=== PATIENT | female | born 1950 | race Caucasian/White ===

== ENCOUNTER → 2016-09-04 | Outpatient (REF) | payer MEDICARE | LOC: M SFHCADAM 07:57 | PROVIDERS: ATTEND Physician Assistant | DX: Z11.59 Encounter for screening for other viral diseases (principal); F34.1 Dysthymic disorder ==

== ENCOUNTER → 2016-10-31 | Outpatient (REF) | payer MEDICARE, MEDICAID ==
[2016-10-31 13:13] LABS: MEAN CORPUSCULAR HEMOGLOBIN 32.5 pg (27.0-33.0); MEAN CORPUSCULAR HGB CONC 33.4 g/dl (32.0-36.5); MEAN CORPUSCULAR VOLUME 97.2 fl (80.0-96.0); RED CELL DISTRIBUTION WIDTH 13.2 % (11.5-14.5); WHITE BLOOD COUNT 11.2 K/mm3 (4.0-10.0)
[2016-10-31 13:33] LABS: ALBUMIN 4.2 GM/DL (3.2-5.2); ALBUMIN/GLOBULIN RATIO 1.17 (1.00-1.93); ALKALINE PHOSPHATASE 55 U/L (45-117); ALT/SGPT 22 U/L (12-78); ANION GAP 9 MEQ/L (8-16); AST/SGOT 20 U/L (15-37); BILIRUBIN,TOTAL 1.2 MG/DL (0.2-1.0); BLOOD UREA NITROGEN 19 MG/DL (7-18); CALCIUM LEVEL 9.2 MG/DL (8.8-10.2); CARBON DIOXIDE LEVEL 27 MEQ/L (21-32); CHLORIDE LEVEL 103 MEQ/L (98-107); CHOLESTEROL LEVEL 195 MG/DL (<200); GLOMERULAR FILTRATION RATE > 60.0 (>45); GLUCOSE, FASTING 96 MG/DL (80-110); SODIUM LEVEL 139 MEQ/L (136-145); TOTAL PROTEIN 7.8 GM/DL (6.4-8.2); TRIGLYCERIDES LEVEL 108 MG/DL (<150)
== END ==
LOC: M SFHCADAM 08:41
PROVIDERS: ATTEND Physician Assistant
DX: E78.4 Other hyperlipidemia (principal); J44.9 Chronic obstructive pulmonary disease, unspecified; E55.9 Vitamin D deficiency, unspecified

== ENCOUNTER → 2016-11-13 | Outpatient (REF) | payer MEDICARE, MEDICAID ==
[~2016-11-13] MED LIST: CHAN1PAK9 PO; FLUO20CA19 PO; OTEZ1TAB3 PO; PROAAER10 INH; RALO1TAB PO; SYNT100T PO
[2016-11-13 19:44] LABS: FREE T4 1.2 NG/DL (0.76-1.46)
== END ==
LOC: M SFHCADAM 11:48
PROVIDERS: ATTEND Physician Assistant
DX: R63.4 Abnormal weight loss (principal); R19.7 Diarrhea, unspecified
CPT/HCPCS: 82784; 84439; 84443; 86256; G0463

== ENCOUNTER 2016-12-13 11:55 | Outpatient (CLI) | payer MEDICARE, MEDICAID ==
[~2016-12-13] VITALS: Ht 153.7 cm; Wt 41.3 kg
[2016-12-13] MEDS ORDERED: NS 1,000 ML IV SCH (12:00)
[2016-12-13] MEDS ORDERED: PROPOFOL 500 MG/50 ML VIAL As Ordered ONE (12:40)
[2016-12-13] MEDS ORDERED: LIDOCAINE 2% INJ 100 MG/5 ML SDV (FOR ANES.) As Ordered ONE (12:43)
--- NOTE | 2016-12-13 13:42 | ROOR ---
Patient Name: No Shah Procedure Date: 12/13/2016 1:27 PM Date of : 1950 Age: 66 Room: [facility] Gender: Female Note Status: Finalized Procedure: Upper GI endoscopy Indications: Generalized abdominal pain, Suspected celiac disease Providers: Dayne Payne Jr, MD Referring MD: MAGDA Servin Requesting Provider: Medicines: Propofol per Anesthesia Complications: No immediate complications. Procedure: Pre-Anesthesia Assessment: - Prior to the procedure, a History and Physical was performed, and patient medications and allergies were reviewed. The patient is competent. The risks and benefits of the procedure and the sedation options and risks were discussed with the patient. All questions were answered and informed consent was obtained. Patient identification and proposed procedure were verified by the physician and the nurse in the pre-procedure area and in the procedure room. Mental Status Examination: alert and oriented. Airway Examination: normal oropharyngeal airway and neck mobility. Respiratory Examination: clear to auscultation. CV Examination: normal. ASA Grade Assessment: II - A patient with mild systemic disease. After reviewing the risks and benefits, the patient was deemed in satisfactory condition to undergo the procedure. The anesthesia plan was to use moderate sedation / analgesia (conscious sedation). Immediately prior to administration of medications, the patient was re-assessed for adequacy to receive sedatives. The heart rate, respiratory rate, oxygen saturations, blood pressure, adequacy of pulmonary ventilation, and response to care were monitored throughout the procedure. The physical status of the patient was re-assessed after the procedure. The Endoscope was introduced through the mouth, and advanced to the second part of duodenum. The upper GI endoscopy was accomplished without difficulty. The patient tolerated the procedure well. Findings: The upper third of the esophagus, middle third of the esophagus and lower third of the esophagus were normal. The cardia, gastric fundus, gastric body, greater curvature of the stomach, lesser curvature of the stomach, gastric antrum, prepyloric region of the stomach and pylorus were normal. The duodenal bulb, first portion of the duodenum and second portion of the duodenum were normal. Biopsies for histology were taken with a cold forceps for evaluation of celiac disease. Impression: - Normal upper third of esophagus, middle third of esophagus and lower third of esophagus. - Normal cardia, gastric fundus, gastric body, greater curvature of the stomach, lesser curvature of the stomach, antrum, prepyloric region of the stomach and pylorus. - Normal duodenal bulb, first portion of the duodenum and second portion of the duodenum. Biopsied. Recommendation: - Discharge patient to home (ambulatory). - Return to my office in 3 weeks. Dayne Payne MD Dayne Payne Jr, MD 12/13/2016 1:41:44 PM This report has been signed electronically. Number of Addenda: 0 Note Initiated On: 12/13/2016 1:27 PM Estimated Blood Loss: Estimated blood loss: none.
--- NOTE | 2016-12-13 14:09 | ROOR ---
Patient Name: No Shah Procedure Date: 12/13/2016 1:28 PM Date of : 1950 Age: 66 Room: [facility] Gender: Female Note Status: Finalized Procedure: Colonoscopy Indications: Chronic diarrhea Providers: Dayne Payne Jr, MD Referring MD: MAGDA Servin Requesting Provider: Medicines: Propofol per Anesthesia Complications: No immediate complications. Procedure: Pre-Anesthesia Assessment: - Prior to the procedure, a History and Physical was performed, and patient medications and allergies were reviewed. The patient is competent. The risks and benefits of the procedure and the sedation options and risks were discussed with the patient. All questions were answered and informed consent was obtained. Patient identification and proposed procedure were verified by the physician and the nurse in the pre-procedure area and in the procedure room. Mental Status Examination: alert and oriented. Airway Examination: normal oropharyngeal airway and neck mobility. Respiratory Examination: clear to auscultation. CV Examination: normal. ASA Grade Assessment: II - A patient with mild systemic disease. After reviewing the risks and benefits, the patient was deemed in satisfactory condition to undergo the procedure. The anesthesia plan was to use moderate sedation / analgesia (conscious sedation). Immediately prior to administration of medications, the patient was re-assessed for adequacy to receive sedatives. The heart rate, respiratory rate, oxygen saturations, blood pressure, adequacy of pulmonary ventilation, and response to care were monitored throughout the procedure. The physical status of the patient was re-assessed after the procedure. The Colonoscope was introduced through the anus and advanced to the cecum, identified by appendiceal orifice and ileocecal valve. The colonoscopy was performed without difficulty. The patient tolerated the procedure well. The quality of the bowel preparation was excellent. Findings: The perianal and digital rectal examinations were normal. Pertinent negatives include no palpable rectal lesions and no anal lesion or abnormality was detected. The sigmoid colon, descending colon, transverse colon, ascending colon, cecum, appendiceal orifice, ileocecal valve and ileum appeared normal. Biopsies for histology were taken with a cold forceps from the ascending colon, transverse colon, descending colon and sigmoid colon for evaluation of microscopic colitis. The distal ileum appeared normal. Biopsies were taken with a cold forceps for histology. A diminutive polyp was found in the recto-sigmoid colon. The polyp was hyperplastic. Impression: - The sigmoid colon, descending colon, transverse colon, ascending colon, cecum, appendiceal orifice, ileocecal valve and terminal ileum are normal. Biopsied. - The examined portion of the ileum was normal. Biopsied. - One diminutive polyp at the recto-sigmoid colon. Recommendation: - Discharge patient to home (ambulatory). - Repeat colonoscopy in 10 years for screening purposes. Dayne Payne MD Dayne Payne Jr, MD 12/13/2016 2:08:28 PM This report has been signed electronically. Number of Addenda: 0 Note Initiated On: 12/13/2016 1:28 PM Estimated Blood Loss: Estimated blood loss: none.
[2016-12-13 14:35] VITALS: BP 115/64
== END 2016-12-13 15:10 | disposition home or self-care (01) ==
LOC: M OPP 11:55
PROVIDERS: ATTEND Surgery
DX: K63.5 Polyp of colon (principal); R10.84 Generalized abdominal pain; R63.4 Abnormal weight loss; J44.9 Chronic obstructive pulmonary disease, unspecified; E03.9 Hypothyroidism, unspecified; Z87.891 Personal history of nicotine dependence; Z79.899 Other long term (current) drug therapy; Z88.0 Allergy status to penicillin; Z88.8 Allergy status to other drugs, medicaments and biological substances; Z91.018 Allergy to other foods

== ENCOUNTER → 2017-02-06 | Outpatient (CLI) | payer MEDICARE, MEDICAID ==
--- NOTE | 2017-02-06 13:49 | REP ---
Thyroid ultrasound: The patient had a thyroidectomy and 2011 for thyroid carcinoma. There is residual soft tissue in the thyroid bed in the right lobe area measuring 125 x 0.6 x 0.5 cm and in the left lobe and measuring 1.8 x 1.2 x 0 point 6 cm and in the isthmus measuring 2 mm. This could represent represent residual thyroid tissue or postsurgical scarring. No nodules or masses are identified. A normal size lymph node is identified anterior to the right common carotid artery measuring 0.3 cm short axis by 0. 7 cm x 1.0 cm. Impression: Small volume of residual thyroid tissue versus postsurgical scarring. Normal size lymph node on the right. Signed by Efra Higginbotham MD 02/06/2017 01:40 P
== END ==
LOC: M RAD 12:39
PROVIDERS: ATTEND Nurse Practitioner Family
DX: C73 Malignant neoplasm of thyroid gland (principal)

== ENCOUNTER 2017-02-09 14:37 | Emergency (ER) | payer MEDICARE, MEDICAID ==
[~2017-02-09] VITALS: Ht 152.4 cm; Wt 43.9 kg
--- NOTE | 2017-02-09 17:50 | REPUSA ---
CLINICAL HISTORY: Trauma. TECHNIQUE: Multiple axial CT images were obtained through the brain without IV contrast material. COMMENTS: There is normal configuration of sella turcica. There are no intra or extra-axial collections. There is no mass effect or midline shift. There is no evidence of hematoma formation. No hydrocephalus is p resent. The ventricles are symmetrical. No abnormal calcifications are present. There is diffuse age-appropriate cerebellar and cerebral atrophy with proportionally dilated ventricl es and cortical sulci. There are bilateral periventricular and subcortical white matter hypolucencies compatible with mild c hronic microvascular disease. Otherwise, no significant focal abnormalities are seen either in the posterior fossa or supratentoria l compartment. IMPRESSION: 1. Age-appropriate cerebellar and cerebral atrophy. 2. Mild chronic microvascular disease. 3. No evidence of acute intracranial pathology. 4. Please see CT of the facial bones report dictated separately. Thank you for your kind referral of this patient.
[2017-02-09] MEDS ORDERED: NS 1,000 ML IV ONE (19:45)
[2017-02-09 19:54] LABS: BASO # 0.1 10^3/uL (0.0-0.2); BASO % 0.9 % (0.0-1.0); EOS # 0.1 10^3/uL (0.0-0.50); EOS % 1.2 % (0.0-3.0); IMMATURE GRANULOCYTE % 0.3 % (0-0); LYMPH % 29.4 % (24.0-44.0); MEAN CORPUSCULAR HEMOGLOBIN 32.8 pg (27.0-33.0); MEAN CORPUSCULAR HGB CONC 33.1 g/dl (32.0-36.5); MEAN CORPUSCULAR VOLUME 99.4 fl (80.0-96.0); MONO # 0.6 10^3/uL (0.0-0.8); MONO % 6.3 % (0.0-5.0); NEUTROPHILS # 6.3 10^3/uL (1.8-7.7); NEUTROPHILS % 61.9 % (36.0-66.0); PLATELET COUNT, AUTOMATED 274 10^3/uL (150-450); RED CELL DISTRIBUTION WIDTH 13.3 % (11.5-14.5); WHITE BLOOD COUNT 10.2 10^3/uL (4.0-10.0)
[2017-02-09 20:44] LABS: ANION GAP 11 MEQ/L (8-16); BLOOD UREA NITROGEN 22 MG/DL (7-18); CARBON DIOXIDE LEVEL 25 MEQ/L (21-32); CHLORIDE LEVEL 99 MEQ/L (98-107); CREATININE FOR GFR 0.68 MG/DL (0.55-1.02); GLOMERULAR FILTRATION RATE > 60.0 (>45); GLUCOSE, FASTING 81 MG/DL (80-110); POTASSIUM SERUM 3.3 MEQ/L (3.5-5.1); SODIUM LEVEL 135 MEQ/L (136-145)
[2017-02-09 21:29] VITALS: BP 148/78
--- NOTE | 2017-02-11 12:25 | REPUSA ---
HISTORY: Trauma. TECHNIQUE: Multiple thin section helically-acquired axially-displayed and helically acquired coronall y displayed computed tomographic images of the face are obtained from the mandible through the fronta l sinuses, with images obtained at soft tissue and bone window. 2D reformatted images were performed. FINDINGS: Diffuse right periorbital swelling and periorbital subcutaneous emphysema is seen. Note is made of a comminuted fracture involving right orbital floor and medial orbital wall. Herniation of intraorbital contents inferiorly but no evidence of entrapment of inferior rectus muscl e. Right intraorbital air is noted. Air-fluid levels present in the right maxillary sinus compatibl e with hemorrhage. Superimposed right maxillary sinusitis is seen. Normal bony mineralization. No additional fractures. Normal left orbit. Normal oral and nasal cavities. Normal infratemporal fossa and deep parapharyngeal spaces with normal muscles of mastication. Normal parotid and submandibular glands. IMPRESSION: Diffuse right periorbital swelling and periorbital subcutaneous emphysema Comminuted fracture involving right orbital floor and medial orbital wall. Herniation of intraorbital contents inferiorly, no evidence of entrapment of inferior rectus muscle. Air-fluid levels present in the right maxillary sinus compatible with hemorrhage. Superimposed right maxillary sinusitis is seen. Thank you for your kind referral of this patient
== END 2017-02-09 21:32 | disposition short-term general hospital (02) ==
LOC: M ED 14:37
DX: S05.11XA Contusion of eyeball and orbital tissues, right eye, initial encounter (principal); W01.198A Fall on same level from slipping, tripping and stumbling with subsequent striking against other object, initial encounter; Y92.012 Bathroom of single-family (private) house as the place of occurrence of the external cause; Y93.89 Activity, other specified; Y99.8 Other external cause status; Z79.899 Other long term (current) drug therapy; Z91.018 Allergy to other foods; Z88.0 Allergy status to penicillin; Z88.8 Allergy status to other drugs, medicaments and biological substances; Z87.891 Personal history of nicotine dependence

== ENCOUNTER → 2017-03-19 | Outpatient (REF) | payer MEDICARE, MEDICAID ==
[2017-03-19 19:49] LABS: ALBUMIN 3.2 GM/DL (3.2-5.2); ALBUMIN/GLOBULIN RATIO 0.94 (1.00-1.93); ALKALINE PHOSPHATASE 57 U/L (45-117); ALT/SGPT 18 U/L (12-78); ANION GAP 8 MEQ/L (8-16); AST/SGOT 10 U/L (7-37); BILIRUBIN,TOTAL 0.3 MG/DL (0.2-1.0); BLOOD UREA NITROGEN 18 MG/DL (7-18); CALCIUM LEVEL 8.8 MG/DL (8.8-10.2); CARBON DIOXIDE LEVEL 28 MEQ/L (21-32); CHLORIDE LEVEL 105 MEQ/L (98-107); CREATININE FOR GFR 0.81 MG/DL (0.55-1.02); GLOMERULAR FILTRATION RATE > 60.0 (>45); GLUCOSE, FASTING 80 MG/DL (80-110); POTASSIUM SERUM 3.7 MEQ/L (3.5-5.1); SODIUM LEVEL 141 MEQ/L (136-145); TOTAL PROTEIN 6.6 GM/DL (6.4-8.2)
[2017-03-19 19:58] LABS: MEAN CORPUSCULAR HEMOGLOBIN 32.5 pg (27.0-33.0); MEAN CORPUSCULAR VOLUME 101.5 fl (80.0-96.0); PLATELET COUNT, AUTOMATED 319 10^3/uL (150-450); RED CELL DISTRIBUTION WIDTH 11.7 % (11.5-14.5); WHITE BLOOD COUNT 15.2 10^3/uL (4.0-10.0)
== END ==
LOC: M SFHCADAM 13:47
PROVIDERS: ATTEND Physician Assistant
DX: R19.7 Diarrhea, unspecified (principal); K92.1 Melena; Z79.899 Other long term (current) drug therapy

== ENCOUNTER → 2017-04-18 | Outpatient (REF) | payer MEDICARE, MEDICAID ==
[2017-04-18 13:18] LABS: MEAN CORPUSCULAR HEMOGLOBIN 31.6 pg (27.0-33.0); MEAN CORPUSCULAR HGB CONC 31.8 g/dl (32.0-36.5); MEAN CORPUSCULAR VOLUME 99.1 fl (80.0-96.0); PLATELET COUNT, AUTOMATED 407 10^3/uL (150-450); RED CELL DISTRIBUTION WIDTH 11.7 % (11.5-14.5); WHITE BLOOD COUNT 16.4 10^3/uL (4.0-10.0)
[2017-04-18 13:45] LABS: ALBUMIN 3.4 GM/DL (3.2-5.2); ALBUMIN/GLOBULIN RATIO 0.83 (1.00-1.93); BILIRUBIN,TOTAL 0.5 MG/DL (0.2-1.0); CREATININE FOR GFR 0.98 MG/DL (0.55-1.02); FREE T4 1.19 NG/DL (0.76-1.46); GLOMERULAR FILTRATION RATE 59.9 (>45); POTASSIUM SERUM 4.2 MEQ/L (3.5-5.1); TOTAL PROTEIN 7.5 GM/DL (6.4-8.2)
== END ==
LOC: M SFHCADAM 10:58
PROVIDERS: ATTEND Physician Assistant
DX: F17.200 Nicotine dependence, unspecified, uncomplicated (principal); E03.9 Hypothyroidism, unspecified; E78.4 Other hyperlipidemia; Z85.850 Personal history of malignant neoplasm of thyroid

== ENCOUNTER → 2017-04-19 | Outpatient (REF) | payer MEDICARE, MEDICAID | LOC: M SFHCADAM 19:13 | PROVIDERS: ATTEND Physician Assistant | DX: R19.7 Diarrhea, unspecified (principal); Z79.899 Other long term (current) drug therapy ==

== ENCOUNTER → 2017-06-01 | Outpatient (REF) | payer MEDICARE, MEDICAID | LOC: M LAB REF 19:00 | DX: R19.37 Generalized abdominal rigidity (principal) | CPT/HCPCS: 87507 ==

== ENCOUNTER → 2017-10-24 | Outpatient (REF) | payer MEDICARE, MEDICAID ==
[2017-10-24 13:09] LABS: ANION GAP 6 MEQ/L (8-16); BLOOD UREA NITROGEN 23 MG/DL (7-18); CALCIUM LEVEL 8.5 MG/DL (8.8-10.2); CARBON DIOXIDE LEVEL 31 MEQ/L (21-32); CHLORIDE LEVEL 107 MEQ/L (98-107); CREATININE FOR GFR 0.69 MG/DL (0.55-1.30); GLOMERULAR FILTRATION RATE > 60.0 (>45); GLUCOSE, FASTING 94 MG/DL (70-100); POTASSIUM SERUM 4.3 MEQ/L (3.5-5.1); SODIUM LEVEL 144 MEQ/L (136-145)
== END ==
LOC: M SFHCADAM 11:19
DX: J44.9 Chronic obstructive pulmonary disease, unspecified (principal); E78.4 Other hyperlipidemia
CPT/HCPCS: 80048

== ENCOUNTER → 2018-01-31 | Outpatient (REF) | payer MEDICARE, MEDICAID ==
[2018-01-31 12:31] LABS: HEMATOCRIT 42.9 % (36.0-47.0); MEAN CORPUSCULAR HEMOGLOBIN 32.6 pg (27.0-33.0); MEAN CORPUSCULAR HGB CONC 32.6 g/dl (32.0-36.5); MEAN CORPUSCULAR VOLUME 99.8 fl (80.0-96.0); PLATELET COUNT, AUTOMATED 293 10^3/uL (150-450); RED CELL DISTRIBUTION WIDTH 12.7 % (11.5-14.5); WHITE BLOOD COUNT 5.6 10^3/uL (4.0-10.0)
[2018-01-31 13:37] LABS: ALBUMIN 3.8 GM/DL (3.2-5.2); ALBUMIN/GLOBULIN RATIO 1.19 (1.00-1.93); ALKALINE PHOSPHATASE 39 U/L (45-117); ALT/SGPT 20 U/L (12-78); ANION GAP 10 MEQ/L (8-16); AST/SGOT 14 U/L (7-37); BLOOD UREA NITROGEN 23 MG/DL (7-18); CALCIUM LEVEL 8.8 MG/DL (8.8-10.2); CARBON DIOXIDE LEVEL 28 MEQ/L (21-32); CHLORIDE LEVEL 105 MEQ/L (98-107); CHOLESTEROL LEVEL 188 MG/DL (<200); CHOLESTEROL RISK RATIO 2.112 (<5); CREATININE FOR GFR 0.64 MG/DL (0.55-1.30); FREE T4 1.42 NG/DL (0.76-1.46); GLOMERULAR FILTRATION RATE > 60.0 (>45); GLUCOSE, FASTING 74 MG/DL (70-100); HDL CHOLESTEROL 89 MG/DL (>40); LDL CHOLESTEROL 40 MG/DL (<100); NON-HDL-C 99 MG/DL; POTASSIUM SERUM 4.6 MEQ/L (3.5-5.1); SODIUM LEVEL 143 MEQ/L (136-145); TRIGLYCERIDES LEVEL 297 MG/DL (<150)
== END ==
LOC: M SFHCADAM 08:05
DX: E03.9 Hypothyroidism, unspecified (principal); J44.9 Chronic obstructive pulmonary disease, unspecified; E78.4 Other hyperlipidemia
CPT/HCPCS: 84443

== ENCOUNTER → 2018-02-18 | Outpatient (CLI) | payer MEDICARE, MEDICAID | LOC: M RAD 13:41 | DX: C73 Malignant neoplasm of thyroid gland (principal); Z98.890 Other specified postprocedural states | CPT/HCPCS: 76536 ==

== ENCOUNTER → 2018-12-23 | Outpatient (REF) | payer MEDICARE, MEDICAID ==
[~2018-12-23] MED LIST changes: +CHAN1PAK13 PO; -CHAN1PAK9 PO; +PROBCAP14 PO; +SING10TA32 PO; +VITA100066 PO
[2018-12-23 19:47] LABS: BASO # 0.1 10^3/uL (0.0-0.2); BASO % 0.7 % (0.0-1.0); EOS # 0.4 10^3/uL (0.0-0.50); EOS % 4.7 % (0.0-3.0); HEMOGLOBIN 14.8 g/dl (12.0-15.5); LYMPH # 2.3 10^3/uL (1.5-4.5); LYMPH % 31.2 % (24.0-44.0); MEAN CORPUSCULAR HEMOGLOBIN 30.5 pg (27.0-33.0); MEAN CORPUSCULAR HGB CONC 31.5 g/dl (32.0-36.5); MEAN CORPUSCULAR VOLUME 96.9 fl (80.0-96.0); MONO # 0.8 10^3/uL (0.0-0.8); MONO % 10.2 % (0.0-5.0); NEUTROPHILS # 3.9 10^3/uL (1.8-7.7); NEUTROPHILS % 52.8 % (36.0-66.0); PLATELET COUNT, AUTOMATED 258 10^3/uL (150-450); RED BLOOD COUNT 4.85 10^6/uL (4.00-5.40); WHITE BLOOD COUNT 7.4 10^3/uL (4.0-10.0)
[2018-12-23 19:59] LABS: ALBUMIN 3.8 GM/DL (3.2-5.2); ALT/SGPT 20 U/L (12-78); BILIRUBIN,TOTAL 0.5 MG/DL (0.2-1.0); BLOOD UREA NITROGEN 20 MG/DL (7-18); CALCIUM LEVEL 8.8 MG/DL (8.8-10.2); CARBON DIOXIDE LEVEL 31 MEQ/L (21-32); CHLORIDE LEVEL 106 MEQ/L (98-107); CHOLESTEROL LEVEL 201 MG/DL (<200); CHOLESTEROL RISK RATIO 2.284 (<5); FREE T4 1.28 NG/DL (0.76-1.46); GLOMERULAR FILTRATION RATE > 60.0 (>39); GLUCOSE, FASTING 79 MG/DL (70-100); HDL CHOLESTEROL 88 MG/DL (>40); LDL CHOLESTEROL 77 MG/DL (<100); NON-HDL-C 113 MG/DL; POTASSIUM SERUM 4.8 MEQ/L (3.5-5.1); SODIUM LEVEL 142 MEQ/L (136-145); THYROID STIMULATING HORMONE 0.384 uIU/ML (0.358-3.740); TOTAL PROTEIN 7.4 GM/DL (6.4-8.2); TRIGLYCERIDES LEVEL 178 MG/DL (<150)
== END ==
LOC: M SFHCADAM 16:06
PROVIDERS: ATTEND Physician Assistant
DX: J44.9 Chronic obstructive pulmonary disease, unspecified (principal); F17.211 Nicotine dependence, cigarettes, in remission; E03.9 Hypothyroidism, unspecified; R06.09 Other forms of dyspnea
CPT/HCPCS: 80053; 80061; 84439; 84443; 85025; 94010; G0463

== ENCOUNTER → 2019-01-13 | Outpatient (CLI) | payer MEDICARE, MEDICAID ==
--- NOTE | 2019-01-13 13:40 | REP ---
Low-dose lung cancer screening CT Indication: Nicotine dependence. Comparison: Low-dose lung screening CT of 05/02/2016. Technique: Axial low-dose CT of the chest was performed and reviewed in lung reformatted images only. No intravenous contrast was administered. Findings: The upper airway is patent. There are diffuse central lobular and paraseptal emphysematous changes. There is pleural parenchymal scarring within the lung apices. There is a 1 mm nodule within the left upper lobe anteriorly on image 39. There is atelectasis within the lingula. There is no pleural effusion. Heart size is normal. No pericardial effusion. Note is made of ACDF hardware. Impression: Lung-RADS 2S for emphysema. Continue annual screening with low-dose CT in 12 months. Electronically Signed by Marilee Avendaño MD 01/13/2019 01:31 P
== END ==
LOC: M RAD 12:36
PROVIDERS: ATTEND Physician Assistant
DX: Z12.2 Encounter for screening for malignant neoplasm of respiratory organs (principal); F17.211 Nicotine dependence, cigarettes, in remission; R91.1 Solitary pulmonary nodule; J43.9 Emphysema, unspecified; J98.11 Atelectasis

== ENCOUNTER → 2019-03-12 | Outpatient (CLI) | payer MEDICAID, MEDICARE ==
[~2019-03-12] MED LIST changes: +SPIR12.9 INH; +SYMB16INH INH
--- NOTE | 2019-03-12 17:09 | REP ---
Thyroid ultrasound: The patient has had a total thyroidectomy. The studies performed evaluate residual thyroid tissue. Comparison is 02/18/2018. The residual thyroid tissue on the right measures 1.3 x 0.6 x 0.5 cm. Residual thyroid tissue on the left measures 1.6 x 0.7 x 0.5 cm. This is not significantly changed from the comparison study. Electronically Signed by Efra Higginbotham MD 03/12/2019 02:34 P
== END ==
LOC: M RAD 13:52
PROVIDERS: ATTEND Internal Medicine Medical Oncology
DX: Z90.89 Acquired absence of other organs (principal); C73 Malignant neoplasm of thyroid gland

== ENCOUNTER → 2019-08-28 | Outpatient (REF) | payer MEDICARE ==
[~2019-08-28] MED LIST changes: -FLUO20CA19 PO; +FLUO20CA22 PO
[2019-08-28 18:11] LABS: BASO # 0.1 10^3/uL (0.0-0.2); BASO % 0.7 % (0.0-1.0); EOS # 0.2 10^3/uL (0.0-0.5); EOS % 1.5 % (0.0-3.0); HEMATOCRIT 44.3 % (36.0-47.0); HEMOGLOBIN 14.1 g/dl (12.0-15.5); LYMPH # 1.9 10^3/uL (1.5-5.0); LYMPH % 16.8 % (24.0-44.0); MEAN CORPUSCULAR HGB CONC 31.8 g/dl (32.0-36.5); MEAN CORPUSCULAR VOLUME 100.5 fl (80.0-96.0); MONO # 0.7 10^3/uL (0.0-0.8); NEUTROPHILS # 8.3 10^3/uL (1.5-8.5); NEUTROPHILS % 74.6 % (36.0-66.0); PLATELET COUNT, AUTOMATED 345 10^3/uL (150-450); RED BLOOD COUNT 4.41 10^6/uL (4.00-5.40); WHITE BLOOD COUNT 11.2 10^3/uL (4.0-10.0)
[2019-08-28 18:38] LABS: ALBUMIN 3.6 GM/DL (3.2-5.2); ALT/SGPT 26 U/L (12-78); BILIRUBIN,TOTAL 0.4 MG/DL (0.2-1.0); BLOOD UREA NITROGEN 21 MG/DL (7-18); CARBON DIOXIDE LEVEL 30 MEQ/L (21-32); CHLORIDE LEVEL 106 MEQ/L (98-107); FREE T4 1.55 NG/DL (0.76-1.46); GLOMERULAR FILTRATION RATE > 60.0 (>39); GLUCOSE, FASTING 90 MG/DL (70-100); POTASSIUM SERUM 4.7 MEQ/L (3.5-5.1); SODIUM LEVEL 142 MEQ/L (136-145); THYROID STIMULATING HORMONE 0.136 uIU/ML (0.358-3.740); TOTAL PROTEIN 7.3 GM/DL (6.4-8.2)
== END ==
LOC: M SFHCADAM 14:14
PROVIDERS: ATTEND Physician Assistant
DX: J44.9 Chronic obstructive pulmonary disease, unspecified (principal); R09.02 Hypoxemia; R06.00 Dyspnea, unspecified

== ENCOUNTER → 2019-08-28 | Outpatient (CLI) | payer MEDICARE ==
--- NOTE | 2019-08-29 08:25 | REP ---
REASON FOR EXAM: Severe COPD. COMPARISON: EXAM: None. The lung franco are hyperexpanded. There is bullous emphysematous change seen in the upper lobe bilaterally. Fibrotic changes are seen in the lung bases. There are no patchy opacities or pleural effusions. The heart is not enlarged. The osseous structures are within normal limits. IMPRESSION: Findings consistent with COPD as described above. Electronically Signed by Bart Santana DO 08/31/2019 07:52 A
== END ==
LOC: M ADAMS 14:31
PROVIDERS: ATTEND Physician Assistant
DX: J44.9 Chronic obstructive pulmonary disease, unspecified (principal); R09.02 Hypoxemia; R06.00 Dyspnea, unspecified

== ENCOUNTER → 2019-11-05 | Outpatient (REF) | payer MEDICARE ==
[2019-11-05 17:35] LABS: FREE T4 1.17 NG/DL (0.76-1.46); THYROID STIMULATING HORMONE 3.82 uIU/ML (0.358-3.740)
== END ==
LOC: M SFHCADAM 13:02
PROVIDERS: ATTEND Physician Assistant
DX: E03.9 Hypothyroidism, unspecified (principal)

== ENCOUNTER → 2020-02-17 | Outpatient (CLI) | payer BC, MEDICAID, MEDICARE ==
[~2020-02-17] MED LIST changes: +LEVO100T5 PO; +LEVO75TA4 PO; +TREL1AER PO
--- NOTE | 2020-02-22 09:24 | REP ---
THYROID ULTRASOUND CLINICAL: History of thyroid cancer and prior thyroidectomy. TECHNIQUE: Real-time spann scale and color evaluation using linear high frequency transducer. COMPARISON: 03/12/2019. FINDINGS: Right thyroid lobe measures 2.0 x 0.6 x 0.3 cm and includes small 5 x 2 x 2 mm nonspecific cyst, which represents a new finding as compared to prior examination. Left lobe measures 2.3 x 0.5 x 0.5 cm and appears essentially normal/stable. Isthmus measures 1.4 mm in width. IMPRESSION: Small new nonspecific cyst in the right thyroid tissue. MTDD
== END ==
LOC: M RAD 14:10
PROVIDERS: ATTEND Internal Medicine Medical Oncology
DX: Z85.850 Personal history of malignant neoplasm of thyroid (principal)

== ENCOUNTER → 2020-03-18 | Outpatient (REF) | payer MEDICARE, MEDICAID | LOC: M LAB REF 17:11 | PROVIDERS: ATTEND Physician Assistant | DX: L57.0 Actinic keratosis (principal); L57.8 Other skin changes due to chronic exposure to nonionizing radiation | CPT/HCPCS: 11102; 88305; G0463 ==

== ENCOUNTER → 2020-04-27 | Outpatient (CLI) | payer MEDICARE ==
[~2020-04-27] MED LIST changes: +LEVO88TA3 PO; +VITA1CAP25 PO
--- NOTE | 2020-04-27 11:45 | REP ---
INDICATION: NICOTINE DEPEND COMPARISON: None. TECHNIQUE: Axial noncontrast images from the thoracic inlet to the upper abdomen using low-dose lung screening technique (LDCT). FINDINGS: There is a new 2 cm spiculated mass at the right lung base abutting the diaphragm (series 201; image 78). Advanced COPD/emphysematous changes with scattered scarring again noted and unchanged. No effusion. No pneumothorax. Tracheobronchial tree is patent and demonstrates associated bronchiectasis. IMPRESSION: Lung-RADS category 4X with a 2 cm spiculated mass at the right base suspicious for malignancy. Biopsy and/or PET-CT are recommended. <Electronically signed by Greg Carrillo > 04/27/20 [id number]
== END ==
LOC: M RAD 11:15
PROVIDERS: ATTEND Physician Assistant
DX: Z12.2 Encounter for screening for malignant neoplasm of respiratory organs (principal); Z87.891 Personal history of nicotine dependence
CPT/HCPCS: 17000; 17003; G0297

== ENCOUNTER → 2020-05-03 | Outpatient (REF) | payer MEDICARE, MEDICAID ==
[2020-05-03 13:39] LABS: FREE T4 1.18 NG/DL (0.76-1.46); THYROGLOBULIN ANTIBODY < 15.0 U/ML (<60.0); THYROID STIMULATING HORMONE 0.609 uIU/ML (0.358-3.740)
[2020-05-04 11:08] LABS: THRYOGLOBULIN ANTIBODIES (ATA) < 1.0 IU/mL (0.0-0.9); THYROGLOBULIN QUANTITATIVE < 0.1 ng/mL (1.5-38.5)
== END ==
LOC: M LABDRWAD 12:02
PROVIDERS: ATTEND Internal Medicine Endocrinology, Diabetes & Metabolism
DX: E89.0 Postprocedural hypothyroidism (principal); C73 Malignant neoplasm of thyroid gland

== ENCOUNTER → 2020-05-31 | Outpatient (CLI) | payer MEDICAID, MEDICARE ==
--- NOTE | 2020-06-01 16:47 | REP ---
INDICATION: DIAGNOSING LUNG NODLE R91.1. COMPARISON: Comparison CT study of the chest 27 April 2020 showed a spiculated nodule in the right lung base.. TECHNIQUE: Fifty-four minutes following the intravenous injection of a 8.96 mCi dose of F-18 FDG, three-dimensional PET scintigraphy is acquired from the skull base to the proximal thighs. Triplanar noncontrast CT scanning is acquired through the same anatomic range for attenuation correction, and image registration with scan parameters optimized to minimize radiation exposure to the patient. PET scintigraphy and CT datasets were fused and displayed on a workstation with multiplanar and projection display capability. FINDINGS: The head and neck soft tissues are unremarkable. The spiculated 2 cm nodule seen on the dome of the diaphragm in the right lower lobe is seen on PET-CT to be mildly hypermetabolic. Maximum standard uptake value is 3.94. There is no other abnormal hypermetabolic uptake in the thorax. In the abdomen and pelvis, normal hepatic, splenic, and gastrointestinal FDG accumulation is seen. No abnormal uptake is seen in the abdomen or pelvis. IMPRESSION: Mild hypermetabolic uptake is seen in the spiculated nodule noted in the right lower lobe on the dome of the diaphragm. Malignancy cannot be excluded. No other abnormal hypermetabolic uptake is seen. <Electronically signed by Franklyn Boucher > 06/01/20 [id number]
== END ==
LOC: M PLARAD 07:26
PROVIDERS: ATTEND Internal Medicine Pulmonary Disease
DX: R91.1 Solitary pulmonary nodule (principal)
CPT/HCPCS: 78815; A9552

== ENCOUNTER → 2020-06-15 | Outpatient (REF) | payer MEDICARE ==
[2020-06-15 18:37] LABS: BLOOD UREA NITROGEN 24 MG/DL (7-18); CALCIUM LEVEL 9.5 MG/DL (8.8-10.2); CARBON DIOXIDE LEVEL 28 MEQ/L (21-32); CHLORIDE LEVEL 105 MEQ/L (98-107); GLOMERULAR FILTRATION RATE > 60.0 (>39); GLUCOSE, FASTING 92 MG/DL (70-100); SODIUM LEVEL 140 MEQ/L (136-145)
== END ==
LOC: M LAB REF 16:46
PROVIDERS: ATTEND Internal Medicine Pulmonary Disease
DX: R91.1 Solitary pulmonary nodule (principal)

== ENCOUNTER → 2020-06-22 | Outpatient (CLI) | payer MEDICARE ==
[2020-06-22 13:06] LABS: BASO # 0.1 10^3/uL (0.0-0.2); BASO % 0.8 % (0.0-1.0); EOS # 0.2 10^3/uL (0.0-0.5); EOS % 2.1 % (0.0-3.0); HEMATOCRIT 43.1 % (36.0-47.0); HEMOGLOBIN 13.7 g/dl (12.0-15.5); LYMPH # 2.1 10^3/uL (1.5-5.0); LYMPH % 28.2 % (24.0-44.0); MEAN CORPUSCULAR HEMOGLOBIN 30.9 pg (27.0-33.0); MEAN CORPUSCULAR HGB CONC 31.8 g/dl (32.0-36.5); MEAN CORPUSCULAR VOLUME 97.3 fl (80.0-96.0); MONO # 0.7 10^3/uL (0.0-0.8); MONO % 8.7 % (2.0-8.0); NEUTROPHILS # 4.5 10^3/uL (1.5-8.5); NEUTROPHILS % 59.7 % (36.0-66.0); PLATELET COUNT, AUTOMATED 278 10^3/uL (150-450); RED BLOOD COUNT 4.43 10^6/uL (4.00-5.40); WHITE BLOOD COUNT 7.5 10^3/uL (4.0-10.0)
[2020-06-22 13:36] LABS: INR 1.05
[2020-06-22 13:37] LABS: PARTIAL THROMBOPLASTIN TIME 25.1 SECONDS (24.2-38.5)
== END ==
LOC: M LAB 12:03
PROVIDERS: ATTEND Internal Medicine Pulmonary Disease
DX: R91.1 Solitary pulmonary nodule (principal)

== ENCOUNTER → 2020-07-22 | Outpatient (CLI) | payer MEDICARE ==
--- NOTE | 2020-07-22 10:22 | REP ---
INDICATION: SOLITARY PULMONARY NODULE. COMPARISON: Low-dose lung screening CT of the chest dated 04/27/2020. TECHNIQUE: Chest CT without IV contrast. FINDINGS: On the comparison study there was a 2 cm spiculated lung nodule in the anterior segment of the right lower lobe. On the study today this nodule is again identified and measures up to 4.0 cm. There are no other lung nodules or masses. There are no infiltrates or pleural effusions. There is extensive bolus replacement of the lung parenchyma, particularly in the upper lung franco. There is no mediastinal or axillary lymph node enlargement. In the absence of IV contrast the study is insensitive for hilar lymph node enlargement. The unenhanced thoracic aorta is unremarkable. The cardiac size is normal. No pericardial effusion. There are occasional coronary artery vascular calcifications. Upper abdomen: There is no adrenal mass or nodule. The visualized unenhanced hepatic parenchyma is homogeneous. The gallbladder is excluded from the study. The visualized areas of the pancreas and spleen are unremarkable. IMPRESSION: There is a spiculated mass in the anterior segment of the right lung lower lobe. This mass has increased in size from the comparison study. No other lung masses or nodules are identified. No adenopathy is identified, however the study is insensitive for hilar adenopathy as discussed. No adrenal mass or nodule is identified. <Electronically signed by Efar Higginbotham > 07/22/20 1719
== END ==
LOC: M RAD 09:42
PROVIDERS: ATTEND Internal Medicine Pulmonary Disease
DX: R91.1 Solitary pulmonary nodule (principal)

== ENCOUNTER → 2020-07-29 | Outpatient (CLI) | payer MEDICARE | LOC: M LABSMTC 10:40 | PROVIDERS: ATTEND Anesthesiology | DX: Z01.812 Encounter for preprocedural laboratory examination (principal); Z20.822 Contact with and (suspected) exposure to COVID-19 ==

== ENCOUNTER 2020-08-03 07:58 | Observation (INO) | payer MEDICARE ==
[~2020-08-03] VITALS: Ht 152.4 cm; Wt 49.2 kg
[2020-08-03] VITALS (9 sets, daily range): BP systolic 102–133; BP diastolic 52–76
[~2020-08-03 07:58] MED LIST changes: +CALC1TAB42 PO; +LIDOCAINE 2% 100MG/5ML SDV (FOR ANES.) As Ordered ONE; +LR 1,000 ML IV SCH; +MIDAZOLAM INJ 2MG/2ML VIAL (J2250 PER 1MG) As Ordered ONE; +ONDANSETRON 4MG/2ML VIAL As Ordered ONE; +PHENYLephrine 500MCG 5ML (100MCG/ML) SYRINGE As Ordered ONE; +ROCURONIUM BROMIDE 50 MG/5 ML VIAL As Ordered ONE; +SUGAMMADEX SODIUM 500 MG/5 ML VIAL (BRIDION) As Ordered ONE; +ZINC1TAB2 PO; +dexameTHASONE 4 MG/ML 1ML VIAL (J1100 PER 1MG) As Ordered ONE; +ePHEDrine SULFATE 25 MG/5 ML(5MG/ML) SYRINGE As Ordered ONE; +fentaNYL 100 MCG/2 ML INJECTION (J3010) As Ordered ONE; +propofoL 200 MG/20 ML VIAL As Ordered ONE
[2020-08-03] MEDS ORDERED: LIDOCAINE 4% INJ 5ML AMP NEB ONE (08:20)
[2020-08-03] MEDS ORDERED: ALBUTEROL SULFATE 2.5 MG/0.5 ML INH NEB SOLN NEB ONE (08:20)
[2020-08-03] MEDS ORDERED: CETACAINE SPRAY 5GM As Ordered ONE (08:25)
[2020-08-03] MEDS ORDERED: LIDOCAINE 1% SDV 30ML VIAL As Ordered ONE (08:25)
[2020-08-03] MEDS ORDERED: LIDOCAINE VISCOUS 2% SOLN 15ML UDC As Ordered ONE (08:25)
[2020-08-03] MEDS ORDERED: EPINEPHrine 1MG/10ML SYRINGE 1.5IN As Ordered ONE (08:25)
[2020-08-03] MEDS ORDERED: THROMBIN SOLN 5,000 UNITS VIAL As Ordered ONE (08:25)
--- NOTE | 2020-08-03 09:00 | ECGEPIP ---
[facility] Test Date: 2020-08-03 Pat Name: SUHAIL NICOLAS Department: Room: - Gender: Female Phone Operator: : 1950 Requested By: Sangita Cody Order Number: [id number] Reading MD: Atul Matamoros Measurements Intervals [place] Rate: 67 P: 80 [place]: 124 QRS: 65 QRSD: 84 T: 57 QT: 420 QTc: 443 Interpretive Statements Normal sinus rhythm Comparison tracing not on file Electronically Signed on 08-03-2020 9:00:12 EDT by Atul Matamoros
[2020-08-03] MEDS ORDERED: ACETAMINOPHEN 1000MG 100ML IV BTL (OFIRMEV) (J0131 PER 10MG) As Ordered ONE (09:14)
--- NOTE | 2020-08-03 10:15 | REP ---
INDICATION: BRONCHOSCOPY. COMPARISON: CT 07/22/2020. TECHNIQUE: Two C-arm views right hemithorax. FINDINGS: Bronchoscope projects over the right lower lung. 2 clips are deployed. IMPRESSION: Fluoroscopy time 3 minutes 24 seconds. <Electronically signed by Efra Luo > 08/03/20 [id number]
[2020-08-03] MEDS ORDERED: fentaNYL 100 MCG/2 ML INJECTION (J3010) IV PRN (10:50)
[2020-08-03] MEDS ORDERED: PERCOCET 5MG/325MG TAB PO PRN (10:50)
[2020-08-03] MEDS ORDERED: MEPERIDINE INJ 25 MG/ML VIAL (J2175) IV PRN (10:50)
[2020-08-03] MEDS ORDERED: METOCLOPRAMIDE INJ 10MG/2ML VIAL (J2765 PER 1) IV PRN (10:50)
[2020-08-03] MEDS ORDERED: ONDANSETRON 4MG/2ML VIAL IV PRN (10:50)
[2020-08-03] MEDS ORDERED: LR 1,000 ML IV SCH (10:50)
--- NOTE | 2020-08-03 10:50 | ROOR ---
Patient Name: No Shah Procedure Date: 08/03/2020 8:29 AM Date of : 1950 Admit Type: Outpatient Age: 70 Note Status: Finalized Attending MD: Shanta Paul MD Procedure: Bronchoscopy Indications: Right lower lobe mass Providers: Shanta Paul MD (Doctor) Referring MD: Alex Juarez DO (Referring MD) Requesting Physician: Medicines: Lidocaine 4% via nebulizer with Albuterol 2.5 mg, Cetacaine topical, Epinephrine 1 mg/10 mL topical 1 mL, General Anesthesia Complications: No immediate complications. Estimated blood loss: Minimal Procedure: Pre-Anesthesia Assessment: - Prior to the procedure, a History and Physical was performed, and patient medications and allergies were reviewed. The patient's tolerance of previous anesthesia was also reviewed. The risks and benefits of the procedure and the sedation options and risks were discussed with the patient. All questions were answered, and informed consent was obtained. Prior Anticoagulants: The patient has taken no previous anticoagulant or antiplatelet agents. ASA Grade Assessment: III - A patient with severe systemic disease. After reviewing the risks and benefits, the patient was deemed in satisfactory condition to undergo the procedure. - Patient identification and proposed procedure were verified prior to the procedure by the physician, the nurse, the anesthesiologist, the manager paper and the museum exhibit technician. The procedure was verified in the procedure room. The Bronchoscope was introduced through the mouth, via the endotracheal tube (the patient was intubated for the procedure) and advanced to the tracheobronchial tree of both lungs. The procedure was accomplished without difficulty. The patient tolerated the procedure well. Findings: The endotracheal tube is in good position. The visualized portion of the trachea is of normal caliber. The loren is sharp but there was some bowing posteriorly. The tracheobronchial tree was examined to at least the first subsegmental level. Bronchial mucosa and anatomy are normal with some scattered pitting and anthracotic pigmentation in mucosa as well as anatomic variant in the right middle lobe segmentation; there are no endobronchial lesions, and scant mucoid secretions in left lower lobe. [employer] navigation bronchoscopy was performed. The CT scan was used for planning purposes. A virtual bronchoscopic image was generated using the planning software. The target in the anterior basal segment of the right lower lobe was marked. A mass approx 3.9 cm in size was found and a pathway was created. After a complete airway exam and percepta brush testing, the robotic electromagnetic navigation phase was then begun to locate the target lesion(s). Positioning centrally (in relation to the lesion) was confirmed using the Olympus radial probe US catheter. Fluoroscopy guided transbronchial brushings of a mass were obtained in the anterior basal segment of the right lower lobe with a cytology brush and sent for routine cytology. Transbronchial biopsies of a mass were performed in the anterior basal segment of the right lower lobe using forceps and sent for histopathology examination. The procedure was guided by fluoroscopy. Adequate specimen confirmed by rapid onsite cytopathology. Fiducial marker placement was performed. Once the target lesion was identified, two markers were deployed in and around the lesion 12 mm apart in the anterior basal segment of the right lower lobe. An endobronchial ultrasound endoscope was utilized in order to assist with fine needle aspiration in the subcarinal area. Transbronchial needle aspirations of a lymph node were performed in the subcarinal area using an Olympus EBUS-TBNA 21 gauge needle and sent for routine cytology. The procedure was guided by ultrasound. Impression: - Right lower lobe mass - The airway examination was normal. - Robotic Electromagnetic navigation bronchoscopy was performed. - Transbronchial brushings were obtained. - Transbronchial lung biopsies were performed. - Fiducial markers were deployed. - Endobronchial ultrasound was performed. - A transbronchial needle aspiration was performed. Recommendation: - Await test results. Procedure Code(s): --- Professional --- 56133, Bronchoscopy, rigid or flexible, including fluoroscopic guidance, when performed; with placement of fiducial markers, single or multiple 47775, Bronchoscopy, rigid or flexible, including fluoroscopic guidance, when performed; with transbronchial needle aspiration biopsy(s), trachea, main stem and/or lobar bronchus(i) 23322, Bronchoscopy, rigid or flexible, including fluoroscopic guidance, when performed; with transbronchial lung biopsy(s), single lobe 67801, Bronchoscopy, rigid or flexible, including fluoroscopic guidance, when performed; with brushing or protected brushings 87558, Bronchoscopy, rigid or flexible, including fluoroscopic guidance, when performed; with computer-assisted, image-guided navigation (List separately in addition to code for primary procedure[s]) 27462, Bronchoscopy, rigid or flexible, including fluoroscopic guidance, when performed; with transendoscopic endobronchial ultrasound (EBUS) during bronchoscopic diagnostic or therapeutic intervention(s) for peripheral lesion(s) (List separately in addition to code for primary procedure[s]) CPT copyright 2019 [employer]. All rights reserved. The codes documented in this report are preliminary and upon surgical territory manager review may be revised to meet current compliance requirements. Shanta Paul MD 08/03/2020 10:50:07 AM Number of Addenda: 0 Note Initiated On: 08/03/2020 8:29 AM
--- NOTE | 2020-08-03 11:04 | REP ---
INDICATION: POST OP EVAL, WE WILL CALL COMPARISON: 08/28/2019 TECHNIQUE: Portable AP view of the chest FINDINGS: Mediastinum and cardiac silhouette are normal. Surgical clips are now identified at the right base with an associated area of opacity measuring roughly 2 cm. Remainder of the examination demonstrates stable chronic changes. No effusion. No pneumothorax. IMPRESSION: Current examination demonstrates 2 cm opacity with adjacent surgical clips at the right base. No effusion. No pneumothorax. <Electronically signed by Greg Carrillo > 08/03/20 1100
[2020-08-03] MEDS ORDERED: ACETAMINOPHEN TAB 650MG DOSE (2X325MG) PO PRN (12:20)
[2020-08-03] MEDS ORDERED: ALBUTEROL 90 MCG/ACT 8GM HFA INHALER INH PRN (12:20)
--- NOTE | 2020-08-03 13:00 | HPEPDOC ---
General Date of Admission 08/03/2020 Date of Service: Aug 03, 2020 Attending Physician: RASHEEDA SILVA MD Chief Complaint The patient is a 70-year-old female admitted with a reason for visit of Right Lower Lobe Abnormality. Source: Patient Exam Limitations: No limitations History of Present Illness Very pleasant 70 yo W with a history of papillary thyroid CA s/p resection and severe COPD with chronic hypoxemic respiratory failure on 2L NC at baseline, mostly nocturnally but at times during the day who follows with Dr. Paul and presented this morning for a scheduled outpatient bronchoscopy for biopsy of a RLL mass and is now being admitted to medicine for observation post bronch with mild hypoxemia. She denies any recent fever, chills, hemoptysis, cough, increase sputum, palpitations, chest pain, dyspnea, abdominal pain, nausea, emesis, diarrhea. - Home Medications Scheduled Apremilast (Otezla) 30 Mg Tablet, 30 MG PO DAILY, (Reported) Calcium Carbonate/Vitamin D3 (Calcium 500-Vit D3 600 Tablet) 1 Each Tablet, 1 TAB PO DAILY, (Reported) Fluoxetine Hcl (Fluoxetine HCl) 20 Mg Cap, 20 MG PO DAILY, (Reported) Fluticasone/Umeclidin/Vilanter (Trelegy Ellipta 100-62.5-25) 1 Each Blst.w.dev, 1 PUFF PO DAILY, (Reported) Levothyroxine Sodium (Levothyroxine Sodium) 88 Mcg Tablet, 88 MCG PO DAILY, (Reported) Montelukast Sodium (Singulair) 10 Mg Tab, 10 MG PO DAILY, (Reported) Raloxifene HCl (Raloxifene HCl) 60 Mg Tab, 60 MG PO DAILY, (Reported) Zinc (Zinc) 50 Mg Tablet, 50 MG PO DAILY, (Reported) Miscellaneous Medications Cholecalciferol (Vitamin D3) (Vitamin D3) 1,250 Mcg Capsule, 1,000 MCG PO, (Reported) Lactobacillus Acidophilus (Probiotic) 1 Cap Cap, 1 CAP PO, (Reported) Allergies Coded Allergies: JOVANNY Inhibitors (Verified Allergy, Severe, anaphalxis, 08/01/20) Penicillins (Verified Allergy, Intermediate, Hives and open sores, ) gluten (Verified Adverse Reaction, Intermediate, Diarrhea, 08/01/20) Past Medical History Medical History History of papillary thyroid CA s/p resection Hypothyroidism COPD with chronic hypoxemic respiratory failure mostly using O2 at night but at times during the day RLL mass s/p bronch today with Dr. Paul Dysthymic disorder HLD Psoriasis Osteopenia Surgical History Total thyroidectomy A-FIB/CHADSVASC A-FIB History Current/History of A-Fib/PAF?: No Current PO Anticoag Therapy: No Age/Risk Factor Scoring CHADSVASC: CHADSVASC Response (Comments) Value Age Risk Factor Age 65-74 years old 1 Gender Risk Factor Female 1 Hx of CHF No 0 Hx of HTN No 0 Hx of Stroke/TIA/or VTE No 0 Hx of Diabetes No 0 Hx of Vascular Disease No 0 Total 2 Treatment Treatment ordered: NONE Reason Anticoagulant not given: Not indicated/[id number] Review of Systems Constitutional: Denies: Chills, Fever, Night Sweats Eyes: Denies: Pain, Vision change ENT: Denies: Head Aches, Ear Pain, Dysphagia Skin: Denies: Rash, Lesions, Breakdown Pulmonary: Denies: Dyspnea, Cough Cardiovascular: Denies: Chest Pain, Palpitations, Orthopnea, Paroxysmal Noc. Dyspnea, Lt Headedness Gastrointestinal: Denies: Nausea, Vomiting, Abdominal Pain, Diarrhea Genitourinary: Denies: Dysuria, Frequency, Incontinence, Retention Hematologic: Denies: Bruising, Bleeding Excessively Endocrine: Denies: Polydipsia, Polyphagia, Polyuria, Heat Intolerance, Cold Intolerance, Other Endocrine Sx Musculoskeletal: Denies: Neck Pain, Back Pain, Joint Pain, Muscle Pain, Spasms Neurological: Denies: Weakness, Numbness, Change in speech, Confusion Psych: Reports: Mood Normal; Denies: Depression, Memory Issues Physical Examination General Exam: Positive: Alert, No Acute Distress Eye Exam: Positive: PERRLA, Conjunctiva & lids normal, EOMI; Negative: Sclera icteric ENT Exam: Positive: Atraumatic, Mucous membr. moist/pink, Pharynx Normal Neck Exam: Positive: Supple; Negative: JVD, thyromegaly Chest Exam: Positive: Clear to auscultation, Normal air movement Heart Exam: Positive: Rate Normal, Regular Rhythm, Normal S1, Normal S2; Negative: Murmurs, Rubs Abdomen Exam: Positive: Normal bowel sounds, Soft; Negative: Tenderness, Hepatospenomegaly Extremity Exam: Positive: Normal pulses; Negative: Clubbing, Cyanosis, Edema Skin Exam: Positive: Nl turgor and temperature; Negative: Breakdown, Lesion Neuro Exam: Positive: Normal Gait, Normal Speech, Cranial Nerves 3-12 NL, Reflexes 2+ Psych Exam: Positive: Mental status NL, Mood NL, Oriented x 3 Vital Signs Vital Signs Date Time Temp Pulse Resp B/P (MAP) Pulse Ox O2 Delivery O2 Flow Rate FiO2 08/03/20 12:00 98.8 76 18 105/53 (70) 92 Nasal Cannula 2.0 08/03/20 10:50 100 Assessment/Plan Very pleasant 70 yo W with a history of papillary thyroid CA s/p resection and severe COPD with chronic hypoxemic respiratory failure on 2L NC at baseline, mostly nocturnally but at times during the day who follows with Dr. Paul and presented this morning for a scheduled outpatient bronchoscopy for biopsy of a RLL mass and is now being admitted to medicine for observation post bronch with mild hypoxemia. COPD: no evidence of exacerbation -advair mdi BID -PRN albuterol MDI -continue home montelukast -supplemental O2 for goal >88% Hypothyroidism: -continue home synthroid Dysthymia: -continue home fluoxetine DVT ppx: TEDs and SCDs Dispo: Observation for likely discharge home tomorrow AM Plan / VTE VTE Prophylaxis Ordered?: Yes RASHEEDA SILVA MD Aug 03, 2020 13:00
[2020-08-03] MEDS ORDERED: D31000TA2 PO (13:15)
[2020-08-03] MEDS: CALCIUM/VITAMIN D 500 MG TAB PO SCH (13:15)
[2020-08-03] MEDS: VITAMIN D 1,000 INTERNATIONAL UNITS TABLET PO SCH (14:22)
[2020-08-03] MEDS: ADVAIR HFA 230/21MCG INHALER INH SCH (19:50)
[2020-08-04 02:00] VITALS: BP 100/58
[2020-08-04 06:00] VITALS: BP 117/79
[2020-08-04] MEDS ORDERED: LEVOTHYROXINE 88MCG TABLET (0.088 MG) PO SCH (06:00)
[2020-08-04 06:36] LABS: HEMATOCRIT 37.7 % (36.0-47.0); HEMOGLOBIN 11.6 g/dl (12.0-15.5); MEAN CORPUSCULAR HEMOGLOBIN 30.1 pg (27.0-33.0); MEAN CORPUSCULAR HGB CONC 30.8 g/dl (32.0-36.5); MEAN CORPUSCULAR VOLUME 97.7 fl (80.0-96.0); PLATELET COUNT, AUTOMATED 228 10^3/uL (150-450); RED BLOOD COUNT 3.86 10^6/uL (4.00-5.40); WHITE BLOOD COUNT 9.6 10^3/uL (4.0-10.0)
[2020-08-04 07:01] LABS: BLOOD UREA NITROGEN 20 MG/DL (7-18); CALCIUM LEVEL 8.5 MG/DL (8.8-10.2); CARBON DIOXIDE LEVEL 30 MEQ/L (21-32); CHLORIDE LEVEL 110 MEQ/L (98-107); CREATININE FOR GFR 0.72 MG/DL (0.55-1.30); GLOMERULAR FILTRATION RATE > 60.0 (>39); GLUCOSE, FASTING 98 MG/DL (70-100); MAGNESIUM LEVEL 2.2 MG/DL (1.8-2.4); POTASSIUM SERUM 4.2 MEQ/L (3.5-5.1); SODIUM LEVEL 144 MEQ/L (136-145)
[2020-08-04] MEDS ORDERED: TIOTROPIUM INHALER/CAPSULE (SPIRIVA) INH SCH (08:00)
[2020-08-04] MEDS ORDERED: LACTOBACILLUS ACIDOPHILUS CAP (BACID) PO SCH (08:00)
[2020-08-04] MEDS: ADVAIR HFA 230/21MCG INHALER INH SCH (08:00)
[2020-08-04] MEDS: CALCIUM/VITAMIN D 500 MG TAB PO SCH (09:00)
[2020-08-04] MEDS ORDERED: MONTELUKAST 10 MG TAB PO SCH (09:00)
[2020-08-04] MEDS ORDERED: FLUoxetine 20 MG CAP PO SCH (09:00)
[2020-08-04] MEDS ORDERED: ENTER DRUG NAME HERE (PATIENT'S OWN MED) PO SCH ×2 (09:00)
[2020-08-04] MEDS: VITAMIN D 1,000 INTERNATIONAL UNITS TABLET PO SCH (09:00)
--- NOTE | 2020-08-04 09:16 | DS.PDOC ---
Discharge Summary General Date of Admission Aug 03, 2020 at 12:20 Date of Discharge 08/04/2020 Attending Physician: RASHEEDA SILVA MD Discharge Summary PROCEDURES PERFORMED DURING STAY: 08/03 Bronchoscopy ADMITTING DIAGNOSES: Observation after surgery Transient hypoxemia DISCHARGE DIAGNOSES: Observation after surgery Transient acute on chronic hypoxemia History of papillary thyroid CA s/p resection Hypothyroidism COPD with chronic hypoxemic respiratory failure mostly using O2 at night but at times during the day RLL mass s/p bronch 08/[address] Paul Dysthymic disorder HLD Psoriasis Osteopenia COMPLICATIONS/CHIEF COMPLAINT: Hypoxemia, Observation After Surgery. HISTORY OF PRESENT ILLNESS: 70 yo W with a history of papillary thyroid CA s/p resection and severe COPD with chronic hypoxemic respiratory failure on 2L NC at baseline, mostly nocturnally but at times during the day who follows with Dr. Paul and presented on the morning of 08/03 for a scheduled outpatient bronchoscopy for biopsy of a RLL mass and was admitted to medicine for observation post bronch with mild hypoxemia. She denied any recent fever, chills, hemoptysis, cough, increase sputum, palpitations, chest pain, dyspnea, abdominal pain, nausea, emesis, diarrhea. HOSPITAL COURSE: She did well on her baseline 2L and is now being discharged home to follow up with Dr. Paul and her PCP in the outpatient setting. DISCHARGE MEDICATIONS: Please see below. ALLERGIES: Please see below. PHYSICAL EXAMINATION ON DISCHARGE: VITAL SIGNS: Please see below. GENERAL: NAD HEENT: NCAT, EOMI, PERRLA, MMM NECK: supple, no JVD CARDIOVASCULAR EXAMINATION: RRR, no m/r/g RESPIRATORY EXAMINATION: CTAB ABDOMINAL EXAMINATION: soft, normoactive sounds, NTND EXTREMITIES: WWP, no edema NEUROLOGICAL EXAMINATION: CN 2-12 intact, clear speech, normal gait PSYCHIATRIC EXAMINATION: AOx3, mood and effect appropriate LABORATORY DATA: Please see below. IMAGING: None PROGNOSIS: Good ACTIVITY: As tolerated DIET: Regular DISCHARGE PLAN: Home to follow up bronch results with pulmonology. PCP follow up DISPOSITION: Home DISCHARGE INSTRUCTIONS: Home to follow up bronch results with pulmonology. PCP follow up ITEMS TO FOLLOWUP ON ON OUTPATIENT: Bronch results DISCHARGE CONDITION: Stable TIME SPENT ON DISCHARGE: 31 minutes. Vital Signs/I&Os Vital Signs Date Time Temp Pulse Resp B/P (MAP) Pulse Ox O2 Delivery O2 Flow Rate FiO2 08/04/20 06:00 97.9 84 18 117/79 (92) 95 Nasal Cannula 2.0 08/03/20 10:50 100 I&O- Last 24 Hours up to 6 AM 08/04/20 06:00 Intake Total 1340 ml Output Total 603 ml Balance 737 ml Laboratory Data Labs 24H Laboratory Tests 2 08/04/20 06:21: Nucleated Red Blood Cells % (auto) 0.0, Anion Gap 4L, Glomerular Filtration Rate > 60.0, Calcium Level 8.5L, Magnesium Level 2.2 CBC/BMP Laboratory Tests 08/04/20 06:21 Discharge Medications Scheduled Apremilast (Otezla) 30 Mg Tablet, 30 MG PO DAILY, (Reported) Calcium Carbonate/Vitamin D3 (Calcium 500-Vit D3 600 Tablet) 1 Each Tablet, 1 TAB PO DAILY, (Reported) Cholecalciferol (Vitamin D3) (Vitamin D3) 1,000 Unit Tablet, 1,000 UNITS PO DAILY, (Reported) Fluoxetine Hcl (Fluoxetine HCl) 20 Mg Cap, 20 MG PO DAILY, (Reported) Fluticasone/Umeclidin/Vilanter (Trelegy Ellipta 100-62.5-25) 1 Each Blst.w.dev, 1 PUFF PO DAILY, (Reported) Lactobacillus Acidophilus (Probiotic) 1 Cap Cap, 1 CAP PO DAILY, (Reported) Levothyroxine Sodium (Levothyroxine Sodium) 88 Mcg Tablet, 88 MCG PO DAILY, (Reported) Montelukast Sodium (Singulair) 10 Mg Tab, 10 MG PO DAILY, (Reported) Raloxifene HCl (Raloxifene HCl) 60 Mg Tab, 60 MG PO DAILY, (Reported) Zinc (Zinc) 50 Mg Tablet, 50 MG PO DAILY, (Reported) Allergies Coded Allergies: JOVANNY Inhibitors (Verified Allergy, Severe, anaphalxis, 08/01/20) Penicillins (Verified Allergy, Intermediate, Hives and open sores, 08/01/20) gluten (Verified Adverse Reaction, Intermediate, Diarrhea, 08/01/20) RASHEEDA SILVA MD Aug 04, 2020 09:16
[2020-08-04 10:00] VITALS: BP 122/62
== END 2020-08-04 12:37 | disposition home or self-care (01) ==
LOC: M SDC 07:58 → M MSPAV 11:31 → M SDC 12:19 → M MSPAV 12:20
PROVIDERS: ADMIT Internal Medicine; ATTEND Internal Medicine
DX: R09.02 Hypoxemia (principal); C34.31 Malignant neoplasm of lower lobe, right bronchus or lung; Z85.850 Personal history of malignant neoplasm of thyroid; E89.0 Postprocedural hypothyroidism; J44.9 Chronic obstructive pulmonary disease, unspecified; J96.11 Chronic respiratory failure with hypoxia; E78.5 Hyperlipidemia, unspecified; F34.1 Dysthymic disorder; L40.9 Psoriasis, unspecified; M85.80 Other specified disorders of bone density and structure, unspecified site; Z99.81 Dependence on supplemental oxygen; Z79.899 Other long term (current) drug therapy; Z79.51 Long term (current) use of inhaled steroids; Z88.8 Allergy status to other drugs, medicaments and biological substances; Z88.0 Allergy status to penicillin; Z91.018 Allergy to other foods
CPT/HCPCS: 31623; 31626; 31627; 31628; 31629; 31654; 36415; 71045; 76000; 80048; 83735; 85027; 88104; 88305; 93005; 94664; G0378; J0131; J1100; J2250; J2370; J2405; J3010; S2900

== ENCOUNTER → 2020-08-16 | Outpatient (CLI) | payer MEDICAID, MEDICARE ==
[~2020-08-16] MED LIST changes: +D31000TA2 PO; -LIDOCAINE 2% 100MG/5ML SDV (FOR ANES.) As Ordered ONE; -LR 1,000 ML IV SCH; -MIDAZOLAM INJ 2MG/2ML VIAL (J2250 PER 1MG) As Ordered ONE; -ONDANSETRON 4MG/2ML VIAL As Ordered ONE; -PHENYLephrine 500MCG 5ML (100MCG/ML) SYRINGE As Ordered ONE; -ROCURONIUM BROMIDE 50 MG/5 ML VIAL As Ordered ONE; -SUGAMMADEX SODIUM 500 MG/5 ML VIAL (BRIDION) As Ordered ONE; -dexameTHASONE 4 MG/ML 1ML VIAL (J1100 PER 1MG) As Ordered ONE; -ePHEDrine SULFATE 25 MG/5 ML(5MG/ML) SYRINGE As Ordered ONE; -fentaNYL 100 MCG/2 ML INJECTION (J3010) As Ordered ONE; -propofoL 200 MG/20 ML VIAL As Ordered ONE
--- NOTE | 2020-08-16 15:06 | RADONC.CN ---
Radiation Oncology Hx/Consult Radiation Oncology Consult Date of Service: Aug 16, 2020 Pt Identifier No Shah is a 70 year old female former smoker with a recently diagnosed [id number] stage IB NSCLC of the RLL, her lesion sits on the dome of the diaphragm. She is seen today for consideration of SBRT. Diagnosis/Treatment History Oncologic History History of thyroid cancer under surveillance 04/27/[address] lung with RLL lesion 2.5 cm on dome of diaphragm 05/31/20 PET-CT with avidity in the RLL lesion 08/03/20 EBUS and biopsy showing NSCLC (adenocarcinoma) no actionable mutation 05/09/20 PFTs FVC 1.65L 65% pred FEV 0.84L 44% pred FEV1/FVC 51 67% pred Severe COPD Interval History She reports getting BERRY with ambulation 100 ft or so. Wears supplemental O2 at home. Currently not wearing any. She has a chronic cough productive of clear mucus. She has no new breathing complaints s/p bronchoscopy. Appetite is good and weight is stable. Past Medical History: Depression Osteoporosis Psoriasis Thyroid cancer COPD Past Surgical History: Thyroidectomy Family History: Father cacer (unknown type) Sister lung cancer Maternal grandfather colon cancer Social History: 44 pack year former smoker Does not drink alcohol Allergies / Meds Allergies: Coded Allergies: JOVANNY Inhibitors (Verified Allergy, Severe, anaphalxis, 08/01/20) Penicillins (Verified Allergy, Intermediate, Hives and open sores, 08/01/20) gluten (Verified Adverse Reaction, Intermediate, Diarrhea, 08/01/20) Home Meds Reported Medications Cholecalciferol (Vitamin D3) (Vitamin D3) 1,000 Unit Tablet, 1000 UNITS PO DAILY, TAB 08/03/20 Zinc (Zinc) 50 Mg Tablet, 50 MG PO DAILY, TAB 08/01/20 Calcium Carbonate/Vitamin D3 (Calcium 500-Vit D3 600 Tablet) 1 Each Tablet, 1 TAB PO DAILY, TAB 08/01/20 Apremilast (Otezla) 30 Mg Tablet, 30 MG PO DAILY 08/01/20 Levothyroxine Sodium (LEVOTHYROXINE SODIUM) 88 Mcg Tablet, 88 MCG PO DAILY 04/20/20 Fluticasone/Umeclidin/Vilanter (Trelegy Ellipta 100-62.5-25) 1 Each Blst.w.dev, 1 PUFF PO DAILY 03/07/20 Lactobacillus Acidophilus (Probiotic) 1 Cap Cap, 1 CAP PO DAILY 02/14/18 Montelukast Sodium (Singulair) 10 Mg Tab, 10 MG PO DAILY 02/14/18 Fluoxetine Hcl (Fluoxetine HCl) 20 Mg Cap, 20 MG PO DAILY 12/07/16 Raloxifene HCl (Raloxifene HCl) 60 Mg Tab, 60 MG PO DAILY 12/07/16 Review of Systems General: Reports: Normal Appetite Constitutional: Denies: Chills, Fever, Night Sweats Eyes: Denies: Pain, Vision change HEENT: Denies: Head Aches, Dysphagia, Sore Throat Skin: Denies: Rash, Lesions, Bruising Pulmonary: Reports: Dyspnea, Cough; Denies: Pleuritic Chest Pain Cardiovascular: Denies: Chest Pain, Palpitations, Edema Gastrointestinal: Denies: Nausea, Vomiting, Abdominal Pain, Diarrhea Genitourinary: Denies: Dysuria, Frequency, Incontinence Hematologic: Denies: Bruising, Petecchia, Enlarged Lymph Nodes Musculoskeletal: Denies: Neck pain, Back pain Neurological: Denies: Weakness, Numbness, Incoordination Psych: Reports: Mood Normal; Denies: Memory Issues, Thoughts of Self Harm Vital Signs Ht 61" Wt 104 lbs BMI 19 T 97 P 88 RR 20 BP 170/88 O2 90% (room air) Pain 0 Fatigue 1 General Exam: Positive: Alert, Cooperative, No Acute Distress Eye Exam: Positive: PERRLA, EOMI ENT EXAM: Positive: Mucous membr. moist/pink, Pharynx Normal Neck Exam: Negative: Thyromegaly, Lymphadenopathy Chest Exam: Positive: Clear to auscultation, Normal air movement; Negative: Rales, Rhonchi, Wheezing Heart Exam: Positive: Rate Normal, Regular Rhythm Abdomen Exam: Positive: Soft; Negative: Tenderness, Mass Extremity Exam: Negative: Edema, Tenderness Skin Exam: Positive: Nl turgor and temperature; Negative: Rash Neuro Exam: Positive: Normal Gait, Normal Speech, Cranial Nerves 3-12 NL Psych Exam: Negative: Mental status NL, Mood NL, Anxiety, Memory Intact, Oriented x 3, Other Diagnostic and Laboratory Diagnostic Review Radiologic images, relevant labs and pathology reports were personally reviewed and discussed with Ms. Shah. Assessment and Plan Impression Ms. Shah is a 70 year old female former smoker with a recently diagnosed [id number] stage IB NSCLC of the RLL, her lesion sits on the dome of the diaphragm. She is seen today for consideration of SBRT. Stage NSCLC RLL stage IB [id number] Performance Status ECOG 1 Plan We had an extensive discussion with Ms. Shah regarding the diagnosis at hand and available therapeutic options. She has an early stage biopsy proven lesion which sits directly atop the dome of liver. She is not a surgical candidate due to the location as well as her COPD. I recommend SBRT to address this lesion 55-60 Gy in 5 fractions with DCA planning and a 4DCT/ITV approach. This will maximally spare lung. We discussed the logistics of receiving radiation therapy in detail including the need for a 1-time planning session. This can occur in the next week. We reviewed the potential side effects of treatment including fatigue, pneumonitis and diaphragmatic irritation/pain. After discussing the risks, benefits and alternatives to radiation therapy, Ms. Shah was amenable to pursuing radiotherapy. All questions were answered to the patient's satisfaction. We instructed the patient that if there were any questions,concerns or changes in clinical status in the interim to contact us. Recommendations SBRT to the RLL lesion 55-60 Gy in 5 fractions Simulation in the next week Billing Statement Total time of [40] minutes was spent preparing for the visit [3], obtaining HPI [4], examining the patient [3], reviewing diagnostic tests [2], discussing management options [16], coordinating care [2], and writing this note [10]. GRETA MCKNIGHT MD Aug 16, 2020 15:06
== END ==
LOC: M ONCR 13:05
PROVIDERS: ATTEND General Practice
DX: C34.31 Malignant neoplasm of lower lobe, right bronchus or lung (principal)

== ENCOUNTER 2020-08-25 10:26 | Outpatient (RCR) | payer MEDICARE | END 2020-09-02 | LOC: M ONCR 10:26 | PROVIDERS: ATTEND General Practice | DX: C34.31 Malignant neoplasm of lower lobe, right bronchus or lung (principal) ==

== ENCOUNTER 2020-09-16 11:41 | Outpatient (RCR) | payer MEDICARE ==
[2020-09-21] MEDS ORDERED: PRED20TA PO (14:29)
--- NOTE | 2020-09-21 14:31 | RADENCPD ---
Date/Time of Encounter Date of Encounter: September 21, 2020 Time of Encounter: 14:29 Encounter No called today complaining of faint wheeze and some green yellow sputum with her intermittent cough. No fevers chills or other signs of infection. She completed SBRT last week, which is too soon for any clinical pneumonitis from RT to manifest. I suggested that this is likely COPD related and will give her a 5 day pulse of prednisone. She may call back if there are additional or worsening symptoms. GRETA MCKNIGHT MD September 21, 2020 14:31
== END 2020-10-03 ==
LOC: M ONCR 11:41
PROVIDERS: ATTEND General Practice
DX: C34.31 Malignant neoplasm of lower lobe, right bronchus or lung (principal)

== ENCOUNTER → 2020-12-08 | Outpatient (CLI) | payer MEDICARE ==
[~2020-12-08] MED LIST changes: +PRED20TA PO
[2020-12-08 12:48] LABS: ALBUMIN 3.2 GM/DL (3.2-5.2); ALT/SGPT 18 U/L (12-78); BILIRUBIN,TOTAL 0.3 MG/DL (0.2-1.0); BLOOD UREA NITROGEN 25 MG/DL (7-18); CALCIUM LEVEL 8.3 MG/DL (8.8-10.2); CARBON DIOXIDE LEVEL 30 MEQ/L (21-32); CHLORIDE LEVEL 109 MEQ/L (98-107); CREATININE FOR GFR 0.68 MG/DL (0.55-1.30); GLOMERULAR FILTRATION RATE > 60.0 (>39); GLUCOSE, FASTING 96 MG/DL (70-100); POTASSIUM SERUM 3.9 MEQ/L (3.5-5.1); SODIUM LEVEL 142 MEQ/L (136-145); TOTAL PROTEIN 6.5 GM/DL (6.4-8.2)
== END ==
LOC: M ONCR 11:09
PROVIDERS: ATTEND General Practice
DX: C34.31 Malignant neoplasm of lower lobe, right bronchus or lung (principal)

== ENCOUNTER → 2020-12-15 | Outpatient (CLI) | payer MEDICARE ==
[~2020-12-15] MED LIST changes: +ISOVUE-370 76% 100ML VIAL As Ordered ONE
--- NOTE | 2020-12-15 14:42 | REP ---
INDICATION: LUNG CA. COMPARISON: None. TECHNIQUE: Scans were obtained during contrast administration. FINDINGS: The lungs are severely emphysematous. Infiltrates are noted in the right middle lobe and right lower lobe. There is no evidence of nodule or mass. There is no adenopathy. No pleural fluid or thickening. Cyst left lobe of the liver. Adrenal glands not enlarged. No evidence of pulmonary embolus. Aorta unremarkable. Great vessels show normal origins from the arch. IMPRESSION: Right middle lobe and right lower lobe pneumonia. Severe emphysema. <Electronically signed by Tutu Mccabe > 12/15/20 0738
== END ==
LOC: M RAD 12:51
PROVIDERS: ATTEND General Practice
DX: C34.31 Malignant neoplasm of lower lobe, right bronchus or lung (principal); J18.9 Pneumonia, unspecified organism; J43.9 Emphysema, unspecified
CPT/HCPCS: 71260; Q9967

== ENCOUNTER → 2020-12-16 | Outpatient (CLI) | payer MEDICARE ==
[~2020-12-16] MED LIST changes: -ISOVUE-370 76% 100ML VIAL As Ordered ONE
--- NOTE | 2020-12-16 11:27 | RADONC ---
Radiation Oncology Hx/FUP Radiation Oncology Hx/FUP Date of Service: Dec 16, 2020 Pt Identifier No Shah is a 70 year old female former smoker with a history of [id number] stage IB NSCLC of the RLL, her lesion sat on the dome of the diaphragm. She is s/p SBRT 60 Gy in 5 fractions completed 09/12/20-09/16/20. She is seen today for follow up and survivorship care. Diagnosis/Treatment History Oncologic History History of thyroid cancer under surveillance 04/27/[address] lung with RLL lesion 2.5 cm on dome of diaphragm 05/31/20 PET-CT with avidity in the RLL lesion 08/03/20 EBUS and biopsy showing NSCLC (adenocarcinoma) no actionable mutation 09/12/20-09/16/20 SBRT 60 Gy in 5 fractions Recent data: 12/15/20 CT chest FINDINGS: The lungs are severely emphysematous. Infiltrates are noted in the right middle lobe and right lower lobe. There is no evidence of nodule or mass. There is no adenopathy. No pleural fluid or thickening. Cyst left lobe of the liver. Adrenal glands not enlarged. No evidence of pulmonary embolus. Aorta unremarkable. Great vessels show normal origins from the arch. IMPRESSION: Right middle lobe and right lower lobe pneumonia. Severe emphysema. Survivorship: Test Due Next Last result Notes TSH, T4* 6m post-tx, then q1y Dr. De La Vega following Carotid US* q10 y post-tx N/A Smoking cessation Assess annually if applicable N/A quit 2019 Chest imaging As indicated, indefinite CT surveillance June 202112/2020 Negative Mammograms Min q1y, in eligible female patients 2021 2020 negative DEXA also negative 2020 Echocardiogram q10y post treatment if mediastinum treated N/A PFTs As indicated N/A 2020 Moderate COPD CBC,CMP, Lipids q1y 2021 Interval History No feels well, energy levels have improved in recent months, as has BERRY. She has no chest pain. Minimal SOB. She is eating well and weight is stable. Only complaint today is related to IV for her scan yesterday, she had extravasation in the left AC, was painful, feels better now. Current Therapy Surveillance Stage RLL NSCLC [id number] stage IB Social History: 44 pack year former smoker Does not drink alcohol Allergies / Meds Allergies: Coded Allergies: JOVANNY Inhibitors (Verified Allergy, Severe, anaphalxis, 08/01/20) Penicillins (Verified Allergy, Intermediate, Hives and open sores, 08/01/20) gluten (Verified Adverse Reaction, Intermediate, Diarrhea, 08/01/20) Home Meds Active Scripts Prednisone (Prednisone) 20 Mg Tablet, 2 TAB PO DAILY for 5 Days, #10 TAB Prov:GRETA MCKNIGHT MD 09/21/20 Reported Medications Cholecalciferol (Vitamin D3) (Vitamin D3) 1,000 Unit Tablet, 1000 UNITS PO DAILY, TAB 08/03/20 Zinc (Zinc) 50 Mg Tablet, 50 MG PO DAILY, TAB 08/01/20 Calcium Carbonate/Vitamin D3 (Calcium 500-Vit D3 600 Tablet) 1 Each Tablet, 1 TAB PO DAILY, TAB 08/01/20 Apremilast (Otezla) 30 Mg Tablet, 30 MG PO DAILY 08/01/20 Levothyroxine Sodium (LEVOTHYROXINE SODIUM) 88 Mcg Tablet, 88 MCG PO DAILY 04/20/20 Fluticasone/Umeclidin/Vilanter (Trelegy Ellipta 100-62.5-25) 1 Each Blst.w.dev, 1 PUFF PO DAILY 03/07/20 Lactobacillus Acidophilus (Probiotic) 1 Cap Cap, 1 CAP PO DAILY 02/14/18 Montelukast Sodium (Singulair) 10 Mg Tab, 10 MG PO DAILY 02/14/18 Fluoxetine Hcl (Fluoxetine HCl) 20 Mg Cap, 20 MG PO DAILY 12/07/16 Raloxifene HCl (Raloxifene HCl) 60 Mg Tab, 60 MG PO DAILY 12/07/16 Review of Systems Review of Systems Constitutional: Denies: Fatigue, Weight Loss Eyes: Denies: Pain HEENT: Denies: Head Aches Skin: Denies: Rash Pulmonary: Reports: Dyspnea; Denies: Cough, Pleuritic Chest Pain Cardiovascular: Denies: Chest Pain, Palpitations Gastrointestinal: Denies: Abdominal Pain Endocrine: Denies: Cold Intolerance Musculoskeletal: Denies: Neck pain, Back pain Neurological: Denies: Weakness, Numbness Psych: Reports: Mood Normal Physical Examination Vital Signs Wt 101 lbs T 97.6 P 89 RR 20 BP 142/75 O2 98% Pain 0 Fatigue 0 General Exam: Alert, Cooperative, No Acute Distress Eye Exam: PERRLA, EOMI ENT EXAM: Atraumatic Neck Exam: Supple Chest Exam: Clear to auscultation, Normal air movement; Negative: Rales, Wheezing Heart Exam: Rate Normal, Regular Rhythm Abdomen Exam: Soft Extremity Exam: Other (Left AC extravasation site soft, bruised, no tenderness); Negative: Edema Neuro Exam: Normal Gait, Normal Speech, Cranial Nerves 3-12 NL Psych Exam: Mental status NL Diagnostic and Laboratory Diagnostic Review Radiologic images, relevant labs and pathology reports were personally reviewed and discussed with Ms. Shah. Assessment and Plan Impression Assessment Ms. Shah is a 70 year old female former smoker with a history of [id number] stage IB NSCLC of the RLL, her lesion sat on the dome of the diaphragm. She is s/p SBRT 60 Gy in 5 fractions completed 09/12/20-09/16/20. She is seen today for follow up and survivorship care. She is doing well with a complete radiographic response on CT, there is minimal residual mass lesion left. 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 Based on her excellent response and the lack of additional lung lesions, she can have her next CT chest in 6 months time. Performance Status ECOG 0 Plan Follow up in [address] chest Ms. Shah was encouraged to call with questions or concerns in the interim period. Billing Statement Total time of [25] minutes was spent preparing for the visit [1], obtaining HPI [5], examining the patient [3], reviewing diagnostic tests [3], discussing management options [5], coordinating care [2], and writing this note [6]. GRETA MCKNIGHT MD Dec 16, 2020 11:27
== END ==
LOC: M ONCR 09:56
PROVIDERS: ATTEND General Practice
DX: C34.31 Malignant neoplasm of lower lobe, right bronchus or lung (principal); K90.41 Non-celiac gluten sensitivity; Z79.890 Hormone replacement therapy; Z79.899 Other long term (current) drug therapy; Z85.850 Personal history of malignant neoplasm of thyroid; Z87.891 Personal history of nicotine dependence; Z88.0 Allergy status to penicillin; Z92.3 Personal history of irradiation

== ENCOUNTER → 2021-02-03 | Outpatient (REF) | payer MEDICARE, MEDICAID ==
[2021-02-03 11:51] LABS: BASO # 0.1 10^3/uL (0.0-0.2); BASO % 0.7 % (0.0-1.0); EOS # 0.4 10^3/uL (0.0-0.5); EOS % 5.6 % (0.0-3.0); HEMATOCRIT 44.9 % (36.0-47.0); HEMOGLOBIN 14.3 g/dl (12.0-15.5); MEAN CORPUSCULAR HGB CONC 31.8 g/dl (32.0-36.5); MEAN CORPUSCULAR VOLUME 94.1 fl (80.0-96.0); MONO # 0.6 10^3/uL (0.0-0.8); MONO % 9.3 % (2.0-8.0); NEUTROPHILS # 4.7 10^3/uL (1.5-8.5); NEUTROPHILS % 69.1 % (36.0-66.0); PLATELET COUNT, AUTOMATED 275 10^3/uL (150-450); RED BLOOD COUNT 4.77 10^6/uL (4.00-5.40); WHITE BLOOD COUNT 6.8 10^3/uL (4.0-10.0)
[2021-02-03 12:34] LABS: ALBUMIN 3.3 GM/DL (3.2-5.2); ALT/SGPT 17 U/L (12-78); BILIRUBIN,TOTAL 0.7 MG/DL (0.2-1.0); BLOOD UREA NITROGEN 16 MG/DL (7-18); CALCIUM LEVEL 8.9 MG/DL (8.8-10.2); CARBON DIOXIDE LEVEL 29 MEQ/L (21-32); CHLORIDE LEVEL 108 MEQ/L (98-107); CHOLESTEROL LEVEL 215 MG/DL (<200); CHOLESTEROL RISK RATIO 2.866 (<5); CREATININE FOR GFR 0.67 MG/DL (0.55-1.30); FREE T4 1.41 NG/DL (0.76-1.46); GLOMERULAR FILTRATION RATE > 60.0 (>39); GLUCOSE, FASTING 85 MG/DL (70-100); HDL CHOLESTEROL 75 MG/DL (>40); LDL CHOLESTEROL 116 MG/DL (<100); NON-HDL-C 140 MG/DL; POTASSIUM SERUM 4.4 MEQ/L (3.5-5.1); SODIUM LEVEL 142 MEQ/L (136-145); THYROID STIMULATING HORMONE 0.315 uIU/ML (0.358-3.740); TOTAL 25(OH) VITAMIN D 33.2 NG/ML (30.0-100.0); TOTAL PROTEIN 7.1 GM/DL (6.4-8.2); TRIGLYCERIDES LEVEL 121 MG/DL (<150); VITAMIN B12 LEVEL 509 PG/ML
== END ==
LOC: M SFHCADAM 08:24
PROVIDERS: ATTEND Physician Assistant
DX: F41.9 Anxiety disorder, unspecified (principal); F34.1 Dysthymic disorder; E03.9 Hypothyroidism, unspecified; E55.9 Vitamin D deficiency, unspecified; C34.92 Malignant neoplasm of unspecified part of left bronchus or lung; E78.5 Hyperlipidemia, unspecified; Z79.899 Other long term (current) drug therapy

== ENCOUNTER → 2021-03-01 | Outpatient (REF) | payer MEDICARE, MEDICAID ==
[2021-03-01 13:24] LABS: THYROID STIMULATING HORMONE 0.328 uIU/ML (0.358-3.740)
[2021-03-01 13:26] LABS: THYROGLOBULIN ANTIBODY < 15.0 U/ML (<60.0)
[2021-03-02 11:10] LABS: THRYOGLOBULIN ANTIBODIES (ATA) < 1.0 IU/mL (0.0-0.9); THYROGLOBULIN QUANTITATIVE < 0.1 ng/mL (1.5-38.5)
== END ==
LOC: M LABDRWAD 12:18
PROVIDERS: ATTEND Internal Medicine Endocrinology, Diabetes & Metabolism
DX: E89.0 Postprocedural hypothyroidism (principal); C73 Malignant neoplasm of thyroid gland

== ENCOUNTER → 2021-04-04 | Outpatient (CLI) | payer MEDICAID, MEDICARE | LOC: M WHC 11:16 | PROVIDERS: ATTEND Physician Assistant | DX: R92.2 Inconclusive mammogram (principal) ==

== ENCOUNTER → 2021-04-25 | Outpatient (CLI) | payer MEDICARE ==
--- NOTE | 2021-04-25 16:22 | REP ---
INDICATION: LEFT BREAST ADD VIEWS. COMPARISON: Mammograms 04/04/2021 as well as multiple other prior exams. Ultrasound 12/20/2016. TECHNIQUE: Spot compression tomographic images are performed of the left breast. Focused left breast ultrasound performed. FINDINGS: There is a 4 mm nodule confirmed in the medial left breast, only seen in the CC projection. Real-time sonographic evaluation of left breast performed. A cyst is seen at 9 o'clock corresponding to the mammographic abnormality, measuring 4 mm in diameter. At 12 o'clock there is a solid nodule 1 cm in diameter, unchanged since the prior ultrasound of 12/20/2016. This is also mammographically stable for several years. IMPRESSION: BIRADS/ACR category 2, benign. The 4 mm nodule medially in the left breast corresponds to a cyst. This mammogram was interpreted with the aid of an FDA-approved computer-aided detection system. The patient letter being requested is M 1. RECOMMENDATION: Repeat screening mammography recommended 1 year (for women over 40). <Electronically signed by Efra Luo > 04/25/21 [id number]
== END ==
LOC: M WHC 10:59
PROVIDERS: ATTEND Physician Assistant
DX: Z12.31 Encounter for screening mammogram for malignant neoplasm of breast (principal); R92.8 Other abnormal and inconclusive findings on diagnostic imaging of breast
CPT/HCPCS: 76642; 77065; G0279

== ENCOUNTER → 2021-06-06 | Outpatient (CLI) | payer MEDICARE | LOC: M RAD 13:38 | PROVIDERS: ATTEND General Practice | DX: C34.31 Malignant neoplasm of lower lobe, right bronchus or lung (principal) | CPT/HCPCS: 71260; Q9967 ==

== ENCOUNTER → 2021-06-21 | Outpatient (CLI) | payer MEDICARE | LOC: M ONCR 09:09 | PROVIDERS: ATTEND General Practice | DX: C34.31 Malignant neoplasm of lower lobe, right bronchus or lung (principal); Z79.890 Hormone replacement therapy; Z79.899 Other long term (current) drug therapy; Z85.850 Personal history of malignant neoplasm of thyroid; Z87.891 Personal history of nicotine dependence; Z88.0 Allergy status to penicillin; Z88.8 Allergy status to other drugs, medicaments and biological substances; Z91.018 Allergy to other foods; Z92.3 Personal history of irradiation ==

== ENCOUNTER → 2021-08-07 | Outpatient (CLI) | payer MEDICARE ==
[~2021-08-07] MED LIST changes: -D31000TA2 PO; +VITA100093 PO
[2021-08-07 14:06] LABS: FREE T4 1.35 NG/DL (0.76-1.46); THYROID STIMULATING HORMONE 0.398 uIU/ML (0.358-3.740)
== END ==
LOC: M LAB 12:27
PROVIDERS: ATTEND Internal Medicine Endocrinology, Diabetes & Metabolism
DX: C73 Malignant neoplasm of thyroid gland (principal)

== ENCOUNTER → 2021-09-04 | Outpatient (CLI) | payer MEDICARE | LOC: M ADAMS 13:54 | PROVIDERS: ATTEND Physician Assistant | DX: C34.92 Malignant neoplasm of unspecified part of left bronchus or lung (principal); R07.81 Pleurodynia ==

== ENCOUNTER → 2021-09-14 | Outpatient (CLI) | payer MEDICARE ==
[2021-09-14 13:20] LABS: BLOOD UREA NITROGEN 22 MG/DL (7-18); CALCIUM LEVEL 9.3 MG/DL (8.8-10.2); CARBON DIOXIDE LEVEL 33 MEQ/L (21-32); CHLORIDE LEVEL 108 MEQ/L (98-107); CREATININE FOR GFR 0.77 MG/DL (0.55-1.30); GLOMERULAR FILTRATION RATE > 60.0 (>39); GLUCOSE, FASTING 108 MG/DL (70-100); POTASSIUM SERUM 4.4 MEQ/L (3.5-5.1); SODIUM LEVEL 142 MEQ/L (136-145)
== END ==
LOC: M PLALAB 11:07
PROVIDERS: ATTEND Physician Assistant
DX: S02.80XD Fracture of other specified skull and facial bones, unspecified side, subsequent encounter for fracture with routine healing (principal); C34.92 Malignant neoplasm of unspecified part of left bronchus or lung

== ENCOUNTER → 2021-09-15 | Outpatient (CLI) | payer MEDICARE ==
[~2021-09-15] MED LIST changes: +ISOVUE-370 76% 100ML VIAL ONE
== END ==
LOC: M PLAIMG 07:50
PROVIDERS: ATTEND Physician Assistant
DX: S22.31XA Fracture of one rib, right side, initial encounter for closed fracture (principal); J44.9 Chronic obstructive pulmonary disease, unspecified; X58.XXXA Exposure to other specified factors, initial encounter; Y92.9 Unspecified place or not applicable; Y99.9 Unspecified external cause status
CPT/HCPCS: 71260; Q9967

== ENCOUNTER → 2021-12-20 | Outpatient (CLI) | payer MEDICARE ==
[~2021-12-20] MED LIST changes: +ISOVUE-370 76% 100ML VIAL As Ordered ONE; -ISOVUE-370 76% 100ML VIAL ONE
== END ==
LOC: M RAD 08:03
PROVIDERS: ATTEND General Practice
DX: C34.31 Malignant neoplasm of lower lobe, right bronchus or lung (principal)
CPT/HCPCS: 36415; 71260; 80053; Q9967

== ENCOUNTER → 2021-12-20 | Outpatient (CLI) | payer MEDICARE ==
[~2021-12-20] MED LIST changes: -ISOVUE-370 76% 100ML VIAL As Ordered ONE
[2021-12-20 08:17] LABS: ALBUMIN 3.7 GM/DL (3.2-5.2); ALT/SGPT 20 U/L (12-78); BILIRUBIN,TOTAL 0.7 MG/DL (0.2-1.0); BLOOD UREA NITROGEN 28 MG/DL (7-18); CALCIUM LEVEL 9.4 MG/DL (8.8-10.2); CARBON DIOXIDE LEVEL 26 MEQ/L (21-32); CHLORIDE LEVEL 109 MEQ/L (98-107); CREATININE FOR GFR 0.76 MG/DL (0.55-1.30); GLOMERULAR FILTRATION RATE > 60.0 (>39); GLUCOSE, FASTING 110 MG/DL (70-100); POTASSIUM SERUM 3.9 MEQ/L (3.5-5.1); SODIUM LEVEL 139 MEQ/L (136-145); TOTAL PROTEIN 7.5 GM/DL (6.4-8.2)
== END ==
LOC: M ONCR 07:17
PROVIDERS: ATTEND General Practice
DX: C34.31 Malignant neoplasm of lower lobe, right bronchus or lung (principal)

== ENCOUNTER → 2021-12-27 | Outpatient (CLI) | payer MEDICARE | LOC: M ONCR 09:40 | PROVIDERS: ATTEND General Practice | DX: C34.31 Malignant neoplasm of lower lobe, right bronchus or lung (principal); Z92.3 Personal history of irradiation; Z87.891 Personal history of nicotine dependence; Z85.850 Personal history of malignant neoplasm of thyroid; J44.9 Chronic obstructive pulmonary disease, unspecified; Z88.0 Allergy status to penicillin; Z88.8 Allergy status to other drugs, medicaments and biological substances; Z91.018 Allergy to other foods ==

== ENCOUNTER → 2022-02-16 | Outpatient (REF) | payer MEDICARE ==
[2022-02-16 13:41] LABS: FREE T4 1.31 NG/DL (0.76-1.46); THYROID STIMULATING HORMONE 0.337 uIU/ML (0.358-3.740)
== END ==
LOC: M SFHCADAM 11:56
PROVIDERS: ATTEND Physician Assistant
DX: E03.9 Hypothyroidism, unspecified (principal)

== ENCOUNTER → 2022-02-20 | Outpatient (CLI) | payer MEDICARE | LOC: M WHC 09:05 | PROVIDERS: ATTEND Physician Assistant | DX: M81.0 Age-related osteoporosis without current pathological fracture (principal) ==

== ENCOUNTER → 2022-04-17 | Outpatient (CLI) | payer MEDICARE | LOC: M WHC 10:21 | PROVIDERS: ATTEND Physician Assistant | DX: Z12.31 Encounter for screening mammogram for malignant neoplasm of breast (principal) ==

== ENCOUNTER → 2022-05-23 | Outpatient (REF) | payer MEDICARE ==
[~2022-05-23] MED LIST changes: +APRE30TA3 PO; -OTEZ1TAB3 PO
[2022-05-23 17:41] LABS: ALBUMIN 3.7 G/DL (3.2-5.2); ALKALINE PHOSPHATASE 70 U/L (46-116); ALT/SGPT 17 U/L (7.0-40); AST/SGOT 20 U/L (<34); BILIRUBIN,TOTAL 0.4 MG/DL (0.3-1.2); BLOOD UREA NITROGEN 30 MG/DL (9-23); CALCIUM LEVEL 9.3 MG/DL (8.3-10.6); CARBON DIOXIDE LEVEL 27 MMOL/L (20-31); CHLORIDE LEVEL 105 MMOL/L (98-107); CREATININE FOR GFR 0.81 MG/DL (0.55-1.30); GLOMERULAR FILTRATION RATE > 60.0 (>39); GLUCOSE, FASTING 102 MG/DL (74-106); POTASSIUM SERUM 4.4 MMOL/L (3.5-5.1); SODIUM LEVEL 142 MMOL/L (136-145); TOTAL PROTEIN 6.9 G/DL (5.7-8.2)
== END ==
LOC: M LABDRWAD 16:34
PROVIDERS: ATTEND General Practice
DX: C34.31 Malignant neoplasm of lower lobe, right bronchus or lung (principal)

== ENCOUNTER → 2022-06-12 | Outpatient (CLI) | payer MEDICARE, MEDICAID | LOC: M RAD 14:08 | PROVIDERS: ATTEND Physician Assistant | DX: Z85.850 Personal history of malignant neoplasm of thyroid (principal) ==

== ENCOUNTER → 2022-06-18 | Outpatient (CLI) | payer MEDICARE ==
[~2022-06-18] MED LIST changes: +ISOVUE-370 76% 100ML VIAL As Ordered ONE
== END ==
LOC: M RAD 09:09
PROVIDERS: ATTEND General Practice
DX: C34.31 Malignant neoplasm of lower lobe, right bronchus or lung (principal); K76.89 Other specified diseases of liver
CPT/HCPCS: 71260; Q9967

== ENCOUNTER → 2022-06-29 | Outpatient (CLI) | payer MEDICARE, MEDICAID ==
[~2022-06-29] MED LIST changes: -ISOVUE-370 76% 100ML VIAL As Ordered ONE
== END ==
LOC: M ONCR 13:45
PROVIDERS: ATTEND General Practice
DX: C34.31 Malignant neoplasm of lower lobe, right bronchus or lung (principal); Z79.51 Long term (current) use of inhaled steroids; Z79.890 Hormone replacement therapy; Z79.899 Other long term (current) drug therapy; Z87.891 Personal history of nicotine dependence; Z88.0 Allergy status to penicillin; Z88.8 Allergy status to other drugs, medicaments and biological substances; Z91.018 Allergy to other foods; Z92.3 Personal history of irradiation

== ENCOUNTER → 2022-08-24 | Outpatient (CLI) | payer MEDICARE, MEDICAID ==
[~2022-08-24] MED LIST changes: +MONT-5 PO; -SING10TA32 PO
[2022-08-24 13:32] LABS: CALCIUM LEVEL 9.1 MG/DL (8.3-10.6)
[2022-08-24 13:37] LABS: TOTAL 25(OH) VITAMIN D 36.6 NG/ML (20.0-100.0)
== END ==
LOC: M ADAMS 07:54
PROVIDERS: ATTEND Internal Medicine Endocrinology, Diabetes & Metabolism
DX: M81.0 Age-related osteoporosis without current pathological fracture (principal)

== ENCOUNTER → 2022-08-24 | Outpatient (REF) | payer MEDICARE, MEDICAID ==
[2022-08-24 13:03] LABS: BASO # 0.1 10^3/uL (0.0-0.2); BASO % 0.7 % (0.0-1.0); EOS # 0.1 10^3/uL (0.0-0.5); EOS % 1.6 % (0.0-3.0); HEMOGLOBIN 15.1 g/dl (12.0-15.5); LYMPH # 1.3 10^3/uL (1.5-5.0); LYMPH % 15.5 % (24.0-44.0); MEAN CORPUSCULAR HEMOGLOBIN 30.3 pg (27.0-33.0); MEAN CORPUSCULAR HGB CONC 31.5 g/dl (32.0-36.5); MEAN CORPUSCULAR VOLUME 96.4 fl (80.0-96.0); MONO # 0.5 10^3/uL (0.0-0.8); MONO % 5.6 % (2.0-8.0); NEUTROPHILS # 6.1 10^3/uL (1.5-8.5); NEUTROPHILS % 76.5 % (36.0-66.0); PLATELET COUNT, AUTOMATED 273 10^3/uL (150-450); RED BLOOD COUNT 4.98 10^6/uL (4.00-5.40)
[2022-08-24 13:36] LABS: ALBUMIN 3.6 G/DL (3.2-5.2); ALKALINE PHOSPHATASE 54 U/L (46-116); ALT/SGPT 19 U/L (7.0-40); AST/SGOT 17 U/L (<34); BILIRUBIN,TOTAL 0.7 MG/DL (0.3-1.2); BLOOD UREA NITROGEN 24 MG/DL (9-23); CALCIUM LEVEL 9.2 MG/DL (8.3-10.6); CARBON DIOXIDE LEVEL 27 MMOL/L (20-31); CHLORIDE LEVEL 106 MMOL/L (98-107); CHOLESTEROL LEVEL 194 MG/DL (<200); CHOLESTEROL RISK RATIO 2.86 (<5); CREATININE FOR GFR 0.71 MG/DL (0.55-1.30); GLOMERULAR FILTRATION RATE > 60.0 (>39); GLUCOSE, FASTING 94 MG/DL (74-106); HDL CHOLESTEROL 67.8 MG/DL (>40); LDL CHOLESTEROL 92.6 MG/DL (<100); NON-HDL-C 126.2 MG/DL; POTASSIUM SERUM 4.7 MMOL/L (3.5-5.1); SODIUM LEVEL 139 MMOL/L (136-145); TOTAL PROTEIN 6.9 G/DL (5.7-8.2); TRIGLYCERIDES LEVEL 168 MG/DL (<150)
[2022-08-24 13:37] LABS: FREE T4 1.38 NG/DL (0.89-1.76); THYROID STIMULATING HORMONE 0.077 uIU/ML (0.55-4.78)
== END ==
LOC: M SFHCADAM 07:48
PROVIDERS: ATTEND Physician Assistant
DX: E03.9 Hypothyroidism, unspecified (principal); Z85.850 Personal history of malignant neoplasm of thyroid; M81.0 Age-related osteoporosis without current pathological fracture; F17.211 Nicotine dependence, cigarettes, in remission; E55.9 Vitamin D deficiency, unspecified; E78.5 Hyperlipidemia, unspecified

== ENCOUNTER → 2022-12-11 | Outpatient (REF) | payer MEDICARE, MEDICAID ==
[2022-12-11 14:21] LABS: ALBUMIN 3.7 G/DL (3.2-5.2); ALKALINE PHOSPHATASE 58 U/L (46-116); ALT/SGPT 15 U/L (7.0-40); AST/SGOT 12 U/L (<34); BILIRUBIN,TOTAL 0.8 MG/DL (0.3-1.2); BLOOD UREA NITROGEN 24 MG/DL (9-23); CALCIUM LEVEL 9.1 MG/DL (8.3-10.6); CARBON DIOXIDE LEVEL 28 MMOL/L (20-31); CHLORIDE LEVEL 104 MMOL/L (98-107); CREATININE FOR GFR 0.69 MG/DL (0.55-1.30); GLOMERULAR FILTRATION RATE > 60.0 (>39); GLUCOSE, FASTING 94 MG/DL (74-106); POTASSIUM SERUM 4.6 MMOL/L (3.5-5.1); SODIUM LEVEL 140 MMOL/L (136-145)
== END ==
LOC: M LABDRWAD 12:29
PROVIDERS: ATTEND General Practice
DX: C34.31 Malignant neoplasm of lower lobe, right bronchus or lung (principal)

== ENCOUNTER → 2022-12-24 | Outpatient (CLI) | payer MEDICARE, MEDICAID ==
[~2022-12-24] MED LIST changes: +ISOVUE-370 76% 100ML VIAL As Ordered ONE
== END ==
LOC: M RAD 13:40
PROVIDERS: ATTEND General Practice
DX: C34.31 Malignant neoplasm of lower lobe, right bronchus or lung (principal)
CPT/HCPCS: 71260; Q9967

== ENCOUNTER → 2022-12-27 | Outpatient (CLI) | payer MEDICARE, MEDICAID ==
[~2022-12-27] MED LIST changes: -ISOVUE-370 76% 100ML VIAL As Ordered ONE
== END ==
LOC: M ONCR 14:11
PROVIDERS: ATTEND General Practice
DX: Z08 Encounter for follow-up examination after completed treatment for malignant neoplasm (principal); Z85.118 Personal history of other malignant neoplasm of bronchus and lung; Z68.1 Body mass index [BMI] 19.9 or less, adult; R91.8 Other nonspecific abnormal finding of lung field; R64 Cachexia; Z71.2 Person consulting for explanation of examination or test findings; Z79.51 Long term (current) use of inhaled steroids; Z79.890 Hormone replacement therapy; Z79.899 Other long term (current) drug therapy; Z87.891 Personal history of nicotine dependence; Z88.0 Allergy status to penicillin; Z88.8 Allergy status to other drugs, medicaments and biological substances; Z91.018 Allergy to other foods; Z92.3 Personal history of irradiation

== ENCOUNTER → 2022-12-28 | Outpatient (REF) | payer MEDICARE, MEDICAID | LOC: M LAB REF 17:08 | PROVIDERS: ATTEND Internal Medicine Pulmonary Disease | DX: J44.9 Chronic obstructive pulmonary disease, unspecified (principal); C34.31 Malignant neoplasm of lower lobe, right bronchus or lung; J18.9 Pneumonia, unspecified organism ==

== ENCOUNTER → 2023-02-11 | Outpatient (CLI) | payer MEDICARE, MEDICAID | LOC: M PLAIMG 12:48 | PROVIDERS: ATTEND Internal Medicine Pulmonary Disease | DX: R91.8 Other nonspecific abnormal finding of lung field (principal) ==

== ENCOUNTER → 2023-02-14 | Outpatient (REF) | payer MEDICARE, MEDICAID ==
[2023-02-14 17:47] LABS: HEMATOCRIT 45.4 % (36.0-47.0); HEMOGLOBIN 14.6 g/dl (12.0-15.5); MEAN CORPUSCULAR HEMOGLOBIN 30.9 pg (27.0-33.0); MEAN CORPUSCULAR HGB CONC 32.2 g/dl (32.0-36.5); MEAN CORPUSCULAR VOLUME 96.2 fl (80.0-96.0); PLATELET COUNT, AUTOMATED 245 10^3/uL (150-450); RED BLOOD COUNT 4.72 10^6/uL (4.00-5.40); WHITE BLOOD COUNT 7.7 10^3/uL (4.0-10.0)
[2023-02-14 18:10] LABS: ALBUMIN 3.3 G/DL (3.2-5.2); ALKALINE PHOSPHATASE 64 U/L (46-116); ALT/SGPT 28 U/L (7.0-40); AST/SGOT 29 U/L (<34); BILIRUBIN,TOTAL 0.7 MG/DL (0.3-1.2); BLOOD UREA NITROGEN 26 MG/DL (9-23); CALCIUM LEVEL 9.1 MG/DL (8.3-10.6); CARBON DIOXIDE LEVEL 28 MMOL/L (20-31); CHLORIDE LEVEL 101 MMOL/L (98-107); GLOMERULAR FILTRATION RATE > 60.0 (>39); GLUCOSE, FASTING 89 MG/DL (74-106); POTASSIUM SERUM 3.7 MMOL/L (3.5-5.1); SODIUM LEVEL 139 MMOL/L (136-145); TOTAL PROTEIN 6.7 G/DL (5.7-8.2)
[2023-02-14 18:13] LABS: FREE T4 1.33 NG/DL (0.89-1.76); THYROID STIMULATING HORMONE 1.345 uIU/ML (0.55-4.78)
== END ==
LOC: M SFHCADAM 13:59
PROVIDERS: ATTEND Physician Assistant
DX: E03.9 Hypothyroidism, unspecified (principal); J44.9 Chronic obstructive pulmonary disease, unspecified; M81.0 Age-related osteoporosis without current pathological fracture; E78.5 Hyperlipidemia, unspecified; C34.92 Malignant neoplasm of unspecified part of left bronchus or lung

== ENCOUNTER → 2023-02-21 | Outpatient (REF) | payer MEDICARE, MEDICAID ==
[2023-02-21 17:40] LABS: INR 1.06; PROTHROMBIN TIME 13.5 SECONDS (12.5-14.5)
== END ==
LOC: M LAB REF 16:51
PROVIDERS: ATTEND Internal Medicine Pulmonary Disease
DX: Z01.812 Encounter for preprocedural laboratory examination (principal); R91.8 Other nonspecific abnormal finding of lung field

== ENCOUNTER → 2023-02-27 | Day surgery (SDC) | payer MEDICARE, MEDICAID ==
[~2023-02-27] VITALS: Ht 152.4 cm; Wt 39.5 kg
[~2023-02-27] MED LIST changes: +ANOR1AER INH; +CETACAINE SPRAY 5GM As Ordered ONE; +EPINEPHrine 1MG/10ML SYRINGE 1.5IN As Ordered ONE; +ESMOLOL INJ 100MG/10ML VIAL As Ordered ONE; +GALZ50CA PO; +HYDROMORPHONE HCL 0.5 MG/ 0.5 ML SYRINGE IV PRN; +LIDOCAINE 2% 100MG/5ML SDV (FOR ANES.) As Ordered ONE; +LR 1,000 ML IV SCH; +ONDANSETRON 4MG 2ML VIAL As Ordered ONE; +ONDANSETRON 4MG 2ML VIAL IV PRN; +PRED10TA2 PO; +ROCURONIUM BROMIDE 50MG/5ML VIAL As Ordered ONE; +SUGAMMADEX SODIUM 500 MG/5 ML VIAL (BRIDION) As Ordered ONE; +THROMBIN 5,000 UNITS VIAL As Ordered ONE; +fentaNYL 100 MCG/2 ML INJECTION As Ordered ONE; +fentaNYL 100 MCG/2 ML INJECTION IV PRN; +oxyCODONE 5MG TAB PO PRN; +propofoL 200 MG/20 ML VIAL As Ordered ONE
[2023-02-27 12:31] VITALS: BP 128/61; TEMP 97.7; O2SAT 96
== END | disposition home or self-care (01) ==
LOC: M SDC 07:04
PROVIDERS: ATTEND Internal Medicine Pulmonary Disease
DX: C34.31 Malignant neoplasm of lower lobe, right bronchus or lung (principal); Z99.81 Dependence on supplemental oxygen; J44.9 Chronic obstructive pulmonary disease, unspecified; E89.0 Postprocedural hypothyroidism; Z80.8 Family history of malignant neoplasm of other organs or systems; Z92.3 Personal history of irradiation; Z88.0 Allergy status to penicillin; Z88.8 Allergy status to other drugs, medicaments and biological substances; K90.41 Non-celiac gluten sensitivity; Z87.891 Personal history of nicotine dependence; Z79.899 Other long term (current) drug therapy; Z79.890 Hormone replacement therapy; Z79.52 Long term (current) use of systemic steroids
CPT/HCPCS: 31624; 31625; 71045; 76000; 87070; 87102; 87116; 87205; 87206; 88305; J0171; J1100; J1805; J2405; J3010

== ENCOUNTER → 2023-04-15 | Outpatient (CLI) | payer MEDICARE, MEDICAID ==
[~2023-04-15] MED LIST changes: -CETACAINE SPRAY 5GM As Ordered ONE; +DEXA2TA PO; -EPINEPHrine 1MG/10ML SYRINGE 1.5IN As Ordered ONE; -ESMOLOL INJ 100MG/10ML VIAL As Ordered ONE; -HYDROMORPHONE HCL 0.5 MG/ 0.5 ML SYRINGE IV PRN; -LIDOCAINE 2% 100MG/5ML SDV (FOR ANES.) As Ordered ONE; -LR 1,000 ML IV SCH; +MORP10SO PO; +MORP1SOL PO; +OMEP-173 PO; -ONDANSETRON 4MG 2ML VIAL As Ordered ONE; -ONDANSETRON 4MG 2ML VIAL IV PRN; -ROCURONIUM BROMIDE 50MG/5ML VIAL As Ordered ONE; -SUGAMMADEX SODIUM 500 MG/5 ML VIAL (BRIDION) As Ordered ONE; -THROMBIN 5,000 UNITS VIAL As Ordered ONE; -fentaNYL 100 MCG/2 ML INJECTION As Ordered ONE; -fentaNYL 100 MCG/2 ML INJECTION IV PRN; -oxyCODONE 5MG TAB PO PRN; -propofoL 200 MG/20 ML VIAL As Ordered ONE
== END ==
LOC: M PLARAD 08:02
PROVIDERS: ATTEND Internal Medicine Pulmonary Disease
DX: C34.31 Malignant neoplasm of lower lobe, right bronchus or lung (principal)
CPT/HCPCS: 78815; A9552

== ENCOUNTER → 2023-04-18 | Outpatient (CLI) | payer MEDICARE, MEDICAID | LOC: M ONCR 13:20 | PROVIDERS: ATTEND General Practice | DX: C34.31 Malignant neoplasm of lower lobe, right bronchus or lung (principal); Z71.2 Person consulting for explanation of examination or test findings; Z87.891 Personal history of nicotine dependence; Z88.0 Allergy status to penicillin; Z88.1 Allergy status to other antibiotic agents; Z88.8 Allergy status to other drugs, medicaments and biological substances; Z79.52 Long term (current) use of systemic steroids; Z79.61 Long term (current) use of immunomodulator; Z79.890 Hormone replacement therapy; Z79.899 Other long term (current) drug therapy; Z91.018 Allergy to other foods; Z92.3 Personal history of irradiation; Z99.81 Dependence on supplemental oxygen ==

== ENCOUNTER → 2023-06-18 | Outpatient (CLI) | payer MEDICARE, MEDICAID | LOC: M RAD 11:05 | PROVIDERS: ATTEND General Practice | DX: C34.31 Malignant neoplasm of lower lobe, right bronchus or lung (principal); J90 Pleural effusion, not elsewhere classified ==

== ENCOUNTER → 2023-06-18 | Outpatient (CLI) | payer MEDICARE, MEDICAID | LOC: M ONCR 08:34 | PROVIDERS: ATTEND General Practice | DX: C34.31 Malignant neoplasm of lower lobe, right bronchus or lung (principal); Z71.2 Person consulting for explanation of examination or test findings; Z87.891 Personal history of nicotine dependence; Z92.3 Personal history of irradiation; Z88.0 Allergy status to penicillin; Z88.1 Allergy status to other antibiotic agents; Z88.8 Allergy status to other drugs, medicaments and biological substances; Z91.018 Allergy to other foods; Z79.890 Hormone replacement therapy; Z79.61 Long term (current) use of immunomodulator; Z79.899 Other long term (current) drug therapy; Z99.81 Dependence on supplemental oxygen ==

== ENCOUNTER → 2023-07-16 | Outpatient (REF) | payer MEDICARE, MEDICAID ==
[2023-07-16 19:19] LABS: ALBUMIN 3.4 G/DL (3.2-5.2); ALKALINE PHOSPHATASE 48 U/L (46-116); ALT/SGPT 22 U/L (7.0-40); AST/SGOT 22 U/L (<34); BILIRUBIN,TOTAL 0.4 MG/DL (0.3-1.2); BLOOD UREA NITROGEN 31 MG/DL (9-23); CALCIUM LEVEL 9.3 MG/DL (8.3-10.6); CARBON DIOXIDE LEVEL 33 MMOL/L (20-31); CHLORIDE LEVEL 102 MMOL/L (98-107); CREATININE FOR GFR 0.65 MG/DL (0.55-1.30); GLOMERULAR FILTRATION RATE > 60.0 (>39); GLUCOSE, FASTING 108 MG/DL (74-106); POTASSIUM SERUM 4.5 MMOL/L (3.5-5.1); SODIUM LEVEL 141 MMOL/L (136-145); TOTAL PROTEIN 6.6 G/DL (5.7-8.2)
[2023-07-16 19:32] LABS: BASO # 0.1 10^3/uL (0.0-0.2); BASO % 0.7 % (0.0-1.0); EOS # 0.2 10^3/uL (0.0-0.5); EOS % 1.6 % (0.0-3.0); HEMATOCRIT 38.1 % (36.0-47.0); HEMOGLOBIN 12.2 g/dl (12.0-15.5); LYMPH # 1.2 10^3/uL (1.5-5.0); LYMPH % 12.5 % (24.0-44.0); MEAN CORPUSCULAR HEMOGLOBIN 31.8 pg (27.0-33.0); MEAN CORPUSCULAR VOLUME 99.2 fl (80.0-96.0); MONO # 0.7 10^3/uL (0.0-0.8); MONO % 7.5 % (2.0-8.0); NEUTROPHILS # 7.6 10^3/uL (1.5-8.5); NEUTROPHILS % 77.4 % (36.0-66.0); PLATELET COUNT, AUTOMATED 301 10^3/uL (150-450); RED BLOOD COUNT 3.84 10^6/uL (4.00-5.40); WHITE BLOOD COUNT 9.8 10^3/uL (4.0-10.0)
== END ==
LOC: M LAB REF 13:40
PROVIDERS: ATTEND Nurse Practitioner
DX: C73 Malignant neoplasm of thyroid gland (principal)

== ENCOUNTER → 2023-09-17 | Outpatient (CLI) | payer OTHER, MEDICAID | LOC: M ONCR 09:40 | PROVIDERS: ATTEND General Practice | DX: C34.31 Malignant neoplasm of lower lobe, right bronchus or lung (principal); R04.2 Hemoptysis; Z71.2 Person consulting for explanation of examination or test findings; Z79.890 Hormone replacement therapy; Z79.891 Long term (current) use of opiate analgesic; Z79.899 Other long term (current) drug therapy; Z87.891 Personal history of nicotine dependence; Z88.0 Allergy status to penicillin; Z88.1 Allergy status to other antibiotic agents; Z88.8 Allergy status to other drugs, medicaments and biological substances; Z91.018 Allergy to other foods; Z92.3 Personal history of irradiation ==

== ENCOUNTER → 2023-09-24 | Outpatient (CLI) | payer OTHER, MEDICAID ==
[~2023-09-24] MED LIST changes: +ISOVUE-370 76% 100ML VIAL As Ordered ONE
== END ==
LOC: M RAD 16:56
PROVIDERS: ATTEND Nurse Practitioner
DX: C34.31 Malignant neoplasm of lower lobe, right bronchus or lung (principal)
CPT/HCPCS: 71260; Q9967

== ENCOUNTER → 2024-01-08 | Outpatient (REF) | payer MEDICARE, MEDICAID ==
[~2024-01-08] MED LIST changes: +FLUO-365 PO; -FLUO20CA22 PO; -ISOVUE-370 76% 100ML VIAL As Ordered ONE
[2024-01-08 19:09] LABS: FREE T4 1.47 NG/DL (0.89-1.76); THYROID STIMULATING HORMONE 0.696 uIU/ML (0.55-4.78)
== END ==
LOC: M SFHCADAM 11:46
PROVIDERS: ATTEND Physician Assistant
DX: C34.91 Malignant neoplasm of unspecified part of right bronchus or lung (principal); E03.9 Hypothyroidism, unspecified

== ENCOUNTER → 2024-01-17 | Outpatient (REF) | payer MEDICARE, MEDICAID ==
[2024-01-17 14:20] LABS: BASO # 0.1 10^3/uL (0.0-0.2); BASO % 0.9 % (0.0-1.0); EOS # 0.3 10^3/uL (0.0-0.5); EOS % 4.1 % (0.0-3.0); HEMOGLOBIN 12.5 g/dl (12.0-15.5); LYMPH # 1.6 10^3/uL (1.5-5.0); LYMPH % 20.6 % (24.0-44.0); MEAN CORPUSCULAR HEMOGLOBIN 30.9 pg (27.0-33.0); MEAN CORPUSCULAR HGB CONC 32.1 g/dl (32.0-36.5); MEAN CORPUSCULAR VOLUME 96.5 fl (80.0-96.0); MONO # 0.7 10^3/uL (0.0-0.8); MONO % 8.2 % (2.0-8.0); NEUTROPHILS # 5.2 10^3/uL (1.5-8.5); NEUTROPHILS % 65.9 % (36.0-66.0); PLATELET COUNT, AUTOMATED 289 10^3/uL (150-450); RED BLOOD COUNT 4.04 10^6/uL (4.00-5.40); WHITE BLOOD COUNT 7.9 10^3/uL (4.0-10.0)
[2024-01-17 14:49] LABS: FERRITIN 101.3 NG/ML (7.3-270.7)
[2024-01-17 14:50] LABS: ALBUMIN 3.5 G/DL (3.2-5.2); ALKALINE PHOSPHATASE 58 U/L (46-116); ALT/SGPT 20 U/L (7.0-40); AST/SGOT 17 U/L (<34); BILIRUBIN,TOTAL 0.4 MG/DL (0.3-1.2); BLOOD UREA NITROGEN 21 MG/DL (9-23); CALCIUM LEVEL 9.6 MG/DL (8.3-10.6); CARBON DIOXIDE LEVEL 31 MMOL/L (20-31); CHLORIDE LEVEL 103 MMOL/L (98-107); CREATININE FOR GFR 0.73 MG/DL (0.55-1.30); GLOMERULAR FILTRATION RATE > 60.0 (>39); GLUCOSE, FASTING 87 MG/DL (74-106); IRON (FE) 75 UG/DL (50-170); PERCENT SATURATION 22.5 % (13.2-45.0); POTASSIUM SERUM 4.1 MMOL/L (3.5-5.1); SODIUM LEVEL 142 MMOL/L (136-145); TOTAL IRON BINDING CAPACITY 334 UG/DL (250-425); TOTAL PROTEIN 7.2 G/DL (5.7-8.2)
== END ==
LOC: M SFHCADAM 11:00
PROVIDERS: ATTEND Physician Assistant
DX: J96.11 Chronic respiratory failure with hypoxia (principal); E55.9 Vitamin D deficiency, unspecified; F17.211 Nicotine dependence, cigarettes, in remission; J44.9 Chronic obstructive pulmonary disease, unspecified; E03.9 Hypothyroidism, unspecified; Z85.850 Personal history of malignant neoplasm of thyroid; C34.92 Malignant neoplasm of unspecified part of left bronchus or lung

== ENCOUNTER → 2024-01-17 | Outpatient (CLI) | payer MEDICARE, MEDICAID | LOC: M ADAMS 11:05 | PROVIDERS: ATTEND Physician Assistant | DX: J44.9 Chronic obstructive pulmonary disease, unspecified (principal) ==

== ENCOUNTER → 2024-03-12 | Outpatient (CLI) | payer MEDICARE, MEDICAID ==
[~2024-03-12] MED LIST changes: +GASTROGRAFIN SOLUTION 30ML As Ordered ONE; +ISOVUE-370 76% 100ML VIAL As Ordered ONE
== END ==
LOC: M RAD 09:41
PROVIDERS: ATTEND General Practice
DX: C34.31 Malignant neoplasm of lower lobe, right bronchus or lung (principal)
CPT/HCPCS: 71260; 74177; Q9963; Q9967

== ENCOUNTER → 2024-03-19 | Outpatient (CLI) | payer MEDICARE, MEDICAID ==
[~2024-03-19] MED LIST changes: -GASTROGRAFIN SOLUTION 30ML As Ordered ONE; -ISOVUE-370 76% 100ML VIAL As Ordered ONE
== END ==
LOC: M ONCR 08:57
PROVIDERS: ATTEND General Practice
DX: I82.B22 Chronic embolism and thrombosis of left subclavian vein (principal); C34.31 Malignant neoplasm of lower lobe, right bronchus or lung; Z71.2 Person consulting for explanation of examination or test findings; Z79.51 Long term (current) use of inhaled steroids; Z79.61 Long term (current) use of immunomodulator; Z79.890 Hormone replacement therapy; Z87.891 Personal history of nicotine dependence; Z88.0 Allergy status to penicillin; Z88.1 Allergy status to other antibiotic agents; Z88.8 Allergy status to other drugs, medicaments and biological substances; Z92.3 Personal history of irradiation

== ENCOUNTER → 2024-03-23 | Outpatient (CLI) | payer MEDICARE, MEDICAID | LOC: M WHC 09:21 | PROVIDERS: ATTEND General Practice | DX: M81.0 Age-related osteoporosis without current pathological fracture (principal); C34.31 Malignant neoplasm of lower lobe, right bronchus or lung ==

== ENCOUNTER → 2024-09-17 | Outpatient (REF) | payer MEDICARE, MEDICAID ==
[~2024-09-17] MED LIST changes: +ALEN70TA82 PO; -GALZ50CA PO; -MORP10SO PO; +MORP10SO21 PO; +ZINC50CA4 PO
[2024-09-17 17:03] LABS: HEMATOCRIT 39.7 % (36.0-47.0); HEMOGLOBIN 12.1 g/dl (12.0-15.5); MEAN CORPUSCULAR HEMOGLOBIN 29.4 pg (27.0-33.0); MEAN CORPUSCULAR HGB CONC 30.5 g/dl (32.0-36.5); MEAN CORPUSCULAR VOLUME 96.6 fl (80.0-96.0); PLATELET COUNT, AUTOMATED 373 10^3/uL (150-450); RED BLOOD COUNT 4.11 10^6/uL (4.00-5.40)
[2024-09-17 17:32] LABS: ALBUMIN 3.5 G/DL (3.2-5.2); ALKALINE PHOSPHATASE 73 U/L (35-104); ALT/SGPT 23 U/L (7.0-40); AST/SGOT 22 U/L (<34); BILIRUBIN,TOTAL 0.3 MG/DL (0.3-1.2); BLOOD UREA NITROGEN 21 MG/DL (9-23); CALCIUM LEVEL 9.6 MG/DL (8.3-10.6); CARBON DIOXIDE LEVEL 34 MMOL/L (20-31); CHLORIDE LEVEL 101 MMOL/L (98-107); CHOLESTEROL LEVEL 241 MG/DL (<200); CREATININE FOR GFR 0.57 MG/DL (0.55-1.30); GLOMERULAR FILTRATION RATE > 90.0 (>39); GLUCOSE, FASTING 60 MG/DL (74-106); HDL CHOLESTEROL 77.5 MG/DL (>40); LDL CHOLESTEROL 135.7 MG/DL (<100); NON-HDL-C 163.5 MG/DL; POTASSIUM SERUM 4.5 MMOL/L (3.5-5.1); SODIUM LEVEL 143 MMOL/L (136-145); TOTAL PROTEIN 7.3 G/DL (5.7-8.2); TRIGLYCERIDES LEVEL 139 MG/DL (<150)
[2024-09-17 17:35] LABS: FREE T4 1.28 NG/DL (0.89-1.76)
[2024-09-17 17:36] LABS: THYROID STIMULATING HORMONE 0.614 uIU/ML (0.55-4.78)
[2024-09-17 17:41] LABS: TOTAL 25(OH) VITAMIN D 57.6 NG/ML (20.0-100.0); VITAMIN B12 LEVEL 1170 PG/ML (211-911)
[2024-09-17 17:44] LABS: FOLATE > 24.0 NG/ML (>5.4)
== END ==
LOC: M LAB REF 16:25
PROVIDERS: ATTEND Physician Assistant
DX: E03.9 Hypothyroidism, unspecified (principal); J44.9 Chronic obstructive pulmonary disease, unspecified; F17.211 Nicotine dependence, cigarettes, in remission; E78.00 Pure hypercholesterolemia, unspecified; E55.9 Vitamin D deficiency, unspecified; M81.0 Age-related osteoporosis without current pathological fracture